=== PATIENT | female | born 1980 | race Caucasian/White ===

== ENCOUNTER 2023-01-05 13:07 | Outpatient (CLI) | payer OTHER, SELFPAY ==
--- NOTE | 2023-01-05 13:20 | CRLHL7_ITS ---
For Patients: As a result of the Century Cures Act, medical imaging exams and procedure reports are released immediately into your electronic medical record. You may view this report before your referring provider. If you have questions, please contact your health care provider. BILATERAL SCREENING MAMMOGRAM WITH COMPUTER-AIDED DETECTION AND TOMOSYNTHESIS TECHNIQUE: CC and MLO views were obtained. These mammographic images have been obtained using full-field digital technique. These mammographic images were interpreted with the benefit of computer-aided detection. Breast Tomosynthesis was used in this interpretation. COMPARISON FILM: 01/04/22, 10/25/20. FINDINGS: The breasts are heterogeneously dense, which may obscure small masses IMPRESSION: There is no radiographic evidence for malignancy. ASSESSMENT: BI-RADS Category 1: Negative RECOMMENDATION: Routine screening mammogram in 1 year. A lay language report of this examination will be provided to the patient. Pedro Pablo Robert M.D. Diagnostic/Nuclear Medicine Radiologist [email or web address] HERON/Dictated by: Pedro Pablo Robert MD @ 01/08/2023 8:05:00 AM (Electronically Signed)
== END 2023-01-05 13:08 | disposition home or self-care (01) ==
PROVIDERS: PCP Family Medicine; Visit Provider Obstetrics & Gynecology
DX: Z12.31 Encounter for screening mammogram for malignant neoplasm of breast (principal); R92.2 Inconclusive mammogram
CPT/HCPCS: 77063; 77067

== ENCOUNTER 2023-03-02 09:59 | Outpatient (CLI) | payer OTHER, SELFPAY ==
[2023-03-02 13:54] LABS: Chlamydia DNA Amplified* NOT DETECTED (No Detected); GC DNA Amplified* NOT DETECTED (No Detected)
== END 2023-03-02 10:00 | disposition home or self-care (01) ==
PROVIDERS: PCP Family Medicine; Visit Provider Obstetrics & Gynecology
DX: Z11.3 Encounter for screening for infections with a predominantly sexual mode of transmission (principal)
CPT/HCPCS: 86592; 86703; 86803; 87340; 87491; 87591

== ENCOUNTER 2023-03-08 09:28 | Outpatient (CLI) | payer OTHER, SELFPAY ==
--- NOTE | 2023-03-08 08:37 | W.ANESCHARGE ---
Anesthesia Charges Start Date/Time Anesthesia Start Date: 03/08/23 Stop Date/Time Anesthesia Stop Date: 03/08/23
--- NOTE | 2023-03-08 10:59 | W.ANESCHARGE ---
Anesthesia Charges Start Date/Time Anesthesia Start Date: 03/08/23 Anesthesia Start Time: 10:20 Stop Date/Time Anesthesia Stop Date: 03/08/23 Anesthesia Stop Time: 10:56
== END 2023-03-08 09:29 | disposition home or self-care (01) ==
LOC: OP CLINIC 09:28
PROVIDERS: PCP Family Medicine; Visit Provider Surgery
DX: Z12.11 Encounter for screening for malignant neoplasm of colon (principal); Z83.71 Family history of colonic polyps
CPT/HCPCS: 45378; 812; J2704

== ENCOUNTER 2023-06-18 10:47 | Inpatient (IN) | payer OTHER, SELFPAY ==
[2023-06-18] VITALS (10 sets, daily range): BP systolic 84–96; BP diastolic 51–58; PULSE 78–113; RESP 14–18; TEMP 36.5–40.5; O2SAT 98–100; BMI 21.8; BMI 22.5
[2023-06-18 12:07] LABS: PCR FLU A Negative PCR FLU A (Negative); PCR FLU B Negative PCR FLU B (Negative); PCR RSV Negative PCR RSV (Negative)
--- NOTE | 2023-06-18 12:11 | CRLHL7_ITS ---
For Patients: As a result of the Century Cures Act, medical imaging exams and procedure reports are released immediately into your electronic medical record. You may view this report before your referring provider. If you have questions, please contact your health care provider. INDICATION: Abdominal pain COMPARISON: None. TECHNIQUE: CT of the abdomen and pelvis after the administration of intravenous contrast. Multiplanar axial, coronal, and sagittal reformats were reconstructed. Contrast: 66 mL Isovue 370 intravenously. Oral contrast was not administered. FINDINGS: Lung bases: Normal. Liver: Normal. No masses. Normal vasculature. Gallbladder and biliary tree: Normal gallbladder. No biliary duct dilation. Pancreas: Normal. Spleen: Normal. Normal size. Adrenal glands: Normal. No nodules. Kidneys and bladder: Normal size and position. Few areas of poor enhancement blurred corticomedullary differentiation in both kidneys. No cyst or mass. No calculi. No urinary tract dilation. The urinary bladder is normal. GI: Normal. No dilated segments. No abnormal bowel wall thickening or hyperenhancement. Small stool burden. The appendix is not discretely seen. Vessels: Aorta and major branches, including the mesenteric vessels: Patent. Normal caliber. No atherosclerotic plaques. IVC and tributaries: Normal. Mesenteric and portal veins: Normal. Peritoneum: No free fluid. Lymph nodes: No adenopathy. Pelvis: Physiologic appearance of the reproductive organs. Bones: No fractures. No focal bone lesions. L5-S1 disc degeneration with loss of disc space height and mild retrolisthesis of L5 on S1.. Abdominal wall: Normal. IMPRESSION: Bilateral multifocal pyelonephritis. No renal abscess or perinephric collection. No urinary tract obstruction. Please note that all CT scans at this facility use dose modulation, iterative reconstruction, and/or weight-based dosing when appropriate to reduce radiation dose to as low as reasonably achievable. Dictated by Sarah Price MD @ 06/18/2023 1:52:01 PM (Electronically Signed)
--- NOTE | 2023-06-18 12:13 | ED.GENADULT ---
HPI - General Adult General Chief complaint: Fever Stated complaint: fever,vomitting Time Seen by Provider: 06/18/23 11:47 History of Present Illness HPI narrative: This 42-year-old female comes in reporting abdominal pain and fever over the past 3 days. She did measure a temperature of a 103.5? F. She states that she did not have a fever yesterday. She has had decreased appetite but has been able to take liquids. She states that her blood pressures typically a systolic value in the 90s but does feel some lightheadedness with her current blood pressure reading at 84/54. She arrives here with normal oximetry and denies having any shortness of breath. Her pulse is in normal range. Related Data Previous Rx's ?Medication ?Instructions ?Recorded desogestrel 0.15 mg-ethinyl 1 tab PO QDAY #112 tabs 06/12/23 estradiol 0.03 mg tablet (Apri) levothyroxine 75 mcg tablet 75 mcg PO DAILY #90 tabs 12/18/23 liothyronine 5 mcg tablet 2.5 mcg (1/2 x 5 mcg) PO DAILY #45 12/18/23 tabs sertraline 50 mg tablet 50 mg PO DAILY #90 tabs 12/18/23 sumatriptan succinate 25 mg tablet 25 - 50 mg (1 - 2 x 25 mg) PO ONCE 12/18/23 #9 tabs valacyclovir 1 gram tablet 2,000 mg (2 x 1 gram) PO BID PRN 12/18/23 cold sores #12 tabs Allergies Allergy/AdvReac Type Severity Reaction Status Date / Time No Known Drug Allergies Allergy Verified 12/18/23 12:53 Review of Systems Status of ROS: Reports: 10 or more systems reviewed and unremarkable except as noted in History and below Narrative: Constitutional: No weight gain or loss. She has had fevers as described above. Eyes: No discharge. No vision changes. HENT: No congestion, no sore throat, no ear pain. Cardiovascular: No chest pain, no palpitations. Respiratory: No shortness of breath, no wheezes, no cough. Gastrointestinal: No diarrhea. Abdominal pain with an episode of vomiting this morning. Genitourinary: No dysuria, no hematuria. Musculoskeletal: Normal range of motion. Skin: No rashes, no pruritis. Neurological: No dizziness, weakness, sensory change, speech change. Endo/Heme/Allergies: No bruising or bleeding. No polydipsia. Pysch: no suicidality, no anxiety, no insomnia. All other systems reviewed and are negative. [facility] Medical History Family history of colon cancer in mother ?Z80.0 - Family history of malignant neoplasm of digestive organs (ICD-10) Fracture of ankle ?S82.899A - Other fracture of unspecified lower leg, initial encounter for closed fracture (ICD-10) HSV-1 infection ?B00.9 - Herpesviral infection, unspecified (ICD-10) History of abnormal cervical Papanicolaou smear ?Z87.42 - Personal history of other diseases of the female genital tract (ICD-10) Vitiligo ?L80 - Vitiligo (ICD-10) Migraine ?G43.909 - Migraine, unspecified, not intractable, without status migrainosus (ICD-10) Hypothyroidism ?E03.9 - Hypothyroidism, unspecified (ICD-10) Jaspreet's thyroiditis ?E06.3 - Autoimmune thyroiditis (ICD-10) Anxiety ?F41.9 - Anxiety disorder, unspecified (ICD-10) Surgical History History of colposcopy with cervical biopsy ?Z98.890 - Other specified postprocedural states (ICD-10) History of wisdom tooth extraction (2007) ?K08.409 - Partial loss of teeth, unspecified cause, unspecified class (ICD-10) History of open reduction and internal fixation (ORIF) procedure (1998) ?Z98.890 - Other specified postprocedural states (ICD-10) Family History Father High blood pressure Depression Mother Coronary artery disease High cholesterol Maternal Grandmother Breast cancer Osteoporosis Maternal Grandfather Colon cancer Maternal Grandmother Stroke High blood pressure High cholesterol Paternal Grandfather Prostate cancer Social History (Updated 08/17/23 @ 12:01 by Shannen Ortega PA-C) Narrative: Currently elected to the [employer] [place] [employer] [place]. Going through a divorce. Two children. Lifelong nonsmoker. Drinks about 3 alcoholic drink per week. What is your current living situation?: I presently have a place to live Problems where you live: no known problems Problems where you live details: na In the past 12 months, utilities in danger of being shut off: no In past 12 months, lack of transportation kept you from medical appts, meetings, work, or getting things needed for daily living: no In the past 12 mos, have been you worried that your food would run out before you had money to buy more?: never true In the past 12 mos, the food you bought just didn't last and you didn't have money to buy more?: never true Highest level of school completed/degree received: Bachelor's degree Smoking Status: Never smoker How often do you have a drink containing alcohol: never AUDIT-C Alcohol total score: 0 Non-prescribed substance use: denies use Caffeine: No Are you now , , , , never or living with a partner: Social isolation score (0-1 are the most socially isolated patients): 0 How often does anyone, including family, friends and others, physically hurt you: never How often does anyone, including family, friends and others, insult or talk down to you: never How often does anyone, including family, friends and others, threaten you with harm: never How often does anyone, including family, friends and others, scream or curse at you: never Little interest or pleasure in doing things: more than half the days Feeling down, depressed, or hopeless: not at all Do you think of yourself as: straight/heterosexual Gender Identity: female Are you currently sexually active: Yes In the past 12 months, how many sex partners have you had: more than one What kind of protection do you use against STDs: condoms Are you using contraception or practicing any form of control: No service: No Exam Narrative: Exam Narrative: Constitutional: Well-developed, well-nourished, no acute distress. HEENT: Normocephalic, atraumatic. Neck: Normal range of motion. Nontender. Supple. Heart: Regular. No murmurs. Normal rate. Intact distal pulses. Lungs: Clear to auscultation. No chest discomfort. No wheezes, rhonchi, or rales. Abdomen: Normal bowel sounds. Tenderness in the right upper quadrant. Mild rebound tenderness. Genitalia: Deferred. Back: No midline tenderness. Normal range of motion. Extremities: Normal range of motion. No injury. Skin: Intact. No rash. Warm. No erythema or pallor. Neurologic: No altered sensation. No weakness. Alert and oriented. Psychiatric: No suicidality. No anxiety or depression. No insomnia. Nursing notes and vitals signs are reviewed. Const: Vital Signs, click to edit/add: Vital Signs - 24 hr 06/18/23 11:16 06/18/23 13:00 06/18/23 15:00 Temperature 97.7 F 98.9 F 104.7 F H Pulse Rate [Pulse Oximeter] 84 113 H Respiratory Rate 14 16 Blood Pressure [Ri ght Upper Arm] 84/54 L 89/51 L Pulse Oximetry 100 99 Oxygen Delivery Me thod Room Air 06/18/23 15:12 Temperature 104.9 F H Pulse Rate [Pulse Oximeter] Respiratory Rate Blood Pressure [Ri ght Upper Arm] Pulse Oximetry Oxygen Delivery Me thod Course Vital Signs Vital signs: Initial Vital Signs Temperature 97.7 F 06/18/23 11:16 Temperature Source Temporal Artery Scan 06/18/23 11:16 Pulse Rate 84 06/18/23 11:16 Pulse Rhythm Regular 06/18/23 11:16 Respiratory Rate 14 06/18/23 11:16 Blood Pressure 84/54 L 06/18/23 11:16 Blood Pressure Mean 64 L 06/18/23 11:16 Blood Pressure Position Sitting 06/18/23 11:16 Pulse Oximetry 100 06/18/23 11:16 Oxygen Delivery Method Room Air 06/18/23 11:16 Vital Signs Temperature 97.7 F 06/18/23 11:16 Pulse Rate 84 06/18/23 11:16 Respiratory Rate 14 06/18/23 11:16 Blood Pressure 84/54 L 06/18/23 11:16 Pulse Oximetry 100 06/18/23 11:16 Oxygen Delivery Method Room Air 06/18/23 11:16 Temperature 97.5 F L 06/22/23 11:00 Pulse Rate 65 06/22/23 11:00 Respiratory Rate 16 06/22/23 11:00 Blood Pressure 117/75 06/22/23 11:00 Pulse Oximetry 100 06/22/23 11:00 Oxygen Delivery Method Room Air 06/22/23 11:00 Medications Administered Medications: Discontinued Medications Generic Name Dose Route Start Last Admin Trade Name Freq PRN Reason Stop Dose Admin Acetaminophen 1,000 mg 06/18/23 15:08 06/18/23 15:12 Acetaminophen 500 Mg Tablet PO 06/18/23 15:09 1,000 mg ONCE ONE Administration Acetaminophen 650 - 975 mg 06/18/23 17:20 06/19/23 01:38 Acetaminophen 325 Mg Tablet PO 650 mg Q6H PRN Administration fever or pain Acetaminophen 1,000 mg 06/19/23 11:47 06/20/23 06:02 Acetaminophen 500 Mg Tablet PO 1,000 mg Q6H PRN Administration fever or pain Amoxicillin/Clavulanate Potassium 875 mg 06/20/23 13:00 06/21/23 09:24 Amoxicillin/Clavulanate 875 Mg/125 Mg Tablet PO 875 mg BIDWM GREG Administration Calcium Carbonate 500 mg 06/20/23 09:37 06/20/23 09:51 Calcium Carbonate 500 Mg Chew PO 500 mg Q4H PRN Administration gerd symptoms Calcium Carbonate 500 mg 06/20/23 09:44 06/22/23 09:24 Calcium Carbonate 500 Mg Chew PO 500 mg TID GREG Administration Enoxaparin Sodium 40 mg 06/18/23 21:00 06/21/23 20:53 Enoxaparin 40 Mg/0.4 Ml Inj SUBCUT 40 mg HS GREG Administration Furosemide 40 mg 06/21/23 15:36 06/21/23 16:54 Furosemide 10 Mg/Ml Inj IVP 06/21/23 15:37 40 mg ONCE ONE Administration Sodium Chloride 1,000 mls @ 1,000 mls/hr 06/18/23 12:15 06/18/23 13:31 0.9 % Sodium Chloride 1000 Ml IV 06/18/23 13:14 Infused .Q1H GREG Infusion Ceftriaxone Sodium 1 gm/ 100 mls @ 200 mls/hr 06/18/23 14:21 06/18/23 15:15 Sodium Chloride IVPB 06/18/23 14:22 Infused ONCE ONE Infusion Sodium Chloride 1,000 mls @ 1,000 mls/hr 06/18/23 15:00 06/18/23 16:03 0.9 % Sodium Chloride 1000 Ml IV 06/18/23 15:59 Infused .Q1H GREG Infusion Lactated Ringer's 1,000 mls @ 1,000 mls/hr 06/18/23 17:17 06/18/23 19:30 Lactated Ringers 1000 Ml IV 06/18/23 18:16 Infused .Q1H ONE Infusion Ceftriaxone Sodium 1 gm/ 100 mls @ 200 mls/hr 06/18/23 17:29 06/18/23 19:30 Sodium Chloride IVPB 06/18/23 17:30 Infused ONCE ONE Infusion Ceftriaxone Sodium 2 gm/ 100 mls @ 200 mls/hr 06/19/23 13:00 06/20/23 13:13 Sodium Chloride IVPB Not Given Q24H GREG Sodium Chloride 1,000 mls @ 1,000 mls/hr 06/19/23 02:00 06/19/23 04:10 0.9 % Sodium Chloride 1000 Ml IV 06/19/23 03:59 Infused .Q1H GREG Infusion Sodium Chloride 1,000 mls @ 200 mls/hr 06/19/23 04:22 06/20/23 06:01 0.9 % Sodium Chloride 1000 Ml IV Infused .Q5H GREG Infusion Ceftriaxone Sodium 2 gm/ 100 mls @ 200 mls/hr 06/21/23 14:15 06/21/23 15:30 Sodium Chloride IVPB Infused Q24H GREG Infusion Ceftriaxone Sodium 2 gm/ 100 mls @ 200 mls/hr 06/22/23 13:15 06/22/23 14:05 Sodium Chloride IVPB 200 mls/hr Q24H GREG Administration Ibuprofen 600 mg 06/18/23 17:25 06/20/23 19:49 Ibuprofen 400 Mg Tablet PO 600 mg Q6H PRN Administration fever or pain Ketorolac Tromethamine 15 mg 06/18/23 12:48 06/18/23 12:58 Ketorolac 30 Mg/Ml Inj IVP 06/18/23 12:49 Not Given ONCE ONE Ketorolac Tromethamine 15 mg 06/18/23 13:00 06/18/23 12:52 Ketorolac 15 Mg/Ml Inj IVP 06/18/23 13:01 15 mg ONCE ONE Administration Lactobacillus Acidophilus 1 tab 06/20/23 18:00 06/20/23 13:28 Lactobacillus Acidophilus 1 Tablet PO 1 tab TIDWM GREG Administration Lactobacillus Acidophilus 1 tab 06/20/23 13:00 06/22/23 14:04 Lactobacillus Acidophilus 1 Tablet PO Not Given TIDWM GREG Levothyroxine Sodium 75 mcg 06/19/23 09:00 06/22/23 09:24 Levothyroxine 75 Mcg Tablet PO 75 mcg DAILY GREG Administration Desogestrel-Ethinyl 0 tab 06/19/23 09:00 06/19/23 09:26 Estradiol [Apri] 0. PO 1 tab 15-0.03 Mg Tablet DAILY GREG Administration Liothyronine 5 Mcg 0 mcg 06/19/23 09:00 06/22/23 09:25 Tablet PO 2.5 mcg DAILY GREG Administration Desogestrel-Ethinyl 0 tab 06/20/23 12:00 06/22/23 12:30 Estradiol [Apri] 0. PO 1 tab 15-0.03 Mg Tablet DAILY@1200 GREG Administration Ondansetron HCl 4 mg 06/18/23 14:23 06/18/23 14:41 Ondansetron 2 Mg/Ml Inj IVP 06/18/23 14:24 4 mg ONCE ONE Administration Polyethylene Glycol 17 gm 06/18/23 17:20 06/20/23 09:51 Polyethylene Glycol 3350 17 Gm Pack PO 17 gm DAILY PRN Administration Potassium Bicarbonate 25 meq 06/18/23 17:30 06/18/23 19:28 Potassium Bicarb 25 Meq Effervescent Tab PO 06/18/23 19:31 25 meq Q2H GREG Administration Potassium Bicarbonate 25 meq 06/21/23 15:45 06/21/23 20:54 Potassium Bicarb 25 Meq Effervescent Tab PO 06/21/23 21:31 25 meq Q2H GREG Administration Senna/Docusate Sodium 1 tab 06/18/23 17:20 06/19/23 21:05 Sennosides/Docusate Tablet PO 1 tab DAILY PRN Administration Sertraline HCl 50 mg 06/19/23 09:00 06/19/23 09:27 Sertraline 50 Mg Tablet PO 50 mg DAILY GREG Administration Sertraline HCl 50 mg 06/20/23 12:00 06/22/23 12:29 Sertraline 50 Mg Tablet PO 50 mg DAILY@1200 GREG Administration Sodium Chloride 5 ml 06/18/23 21:00 06/20/23 21:34 Sodium Chloride 0.9 % (Flush) 10 Ml Syringe IVF Not Given BID GREG Medical Decision Making MDM Narrative Medical decision making narrative: This 42-year-old female comes in reporting abdominal pain and a report of fever in the past few days. She arrives with normal vital signs but her blood pressure is on the low side which she states is not atypical for her. She however does report some lightheadedness symptoms. She was chilled when I arrived initially and throughout the course of her stay here she is developing a fever despite getting Toradol 15 mg intravenously. She did generate a fever of around 104? F during her stay here. Blood cultures are acquired and her lactate returns at 2.4. The patient did received 2 L of normal saline intravenously which is a bit more than 30 milliliters/kilogram for her. After blood cultures she received a g of Rocephin. I did use bedside ultrasound to look at her right upper quadrant and saw normal gallbladder common bile duct. CT imaging of the abdomen and pelvis shows evidence of bilateral pyelonephritis. I did speak with the hospitalist automobile brakes bonder, Dr. Mi, regarding this patient who agrees to admit her into the hospital for ongoing management. Lab Data Labs: Lab Results 06/18/23 06/18/23 06/18/23 Range/Units 11:25 12:25 14:15 WBC 19.21 H (4.50-11.00) K/uL RBC 3.97 L (4.00-5.20) m/uL Hgb 11.3 L (12.0-16.0) gm/dL Hct 34.4 (33.0-51.0) % MCV 87 (80-100) fL MCH 29 (26-34) pg MCHC 33 (32-36) gm/dL RDW Coeff of [place] 13.9 (11.5-15.5) % Plt Count 298 (140-440) K/uL Neut % (Auto) 87.3 H (42.0-72.0) % Lymph % (Auto) 5.3 L (20-44) % [place] % (Auto) 7.0 (0.0-11.0) % Eos % (Auto) 0.0 (0.0-7.0) % Baso % (Auto) 0.1 (0.0-3.0) % Neut # (Auto) 16.80 H (1.7-7.0) K/uL Lymph # (Auto) 1.00 (0.90-2.90) K/uL [place] # (Auto) 1.30 H (0.00-0.90) K/UL Eos # (Auto) 0.00 (0.00-0.50) K/uL Baso # (Auto) 0.00 (0.00-0.30) K/uL Abs Immat Gran (auto) 0.10 (0.00-0.30) K/uL Imm/Tot Granulo (auto) 0.3 % Sodium 134 L (135-149) mmol/L Potassium 3.5 L (3.6-5.1) mmol/L Chloride 98 (96-114) mmol/L Carbon Dioxide 23 (20-32) mmol/L Anion Gap 13 (7-15) mEq/L BUN 10 (5-24) mg/dL Creatinine 0.8 (0.5-1.5) mg/dL Estimated Creat Clear 85.76 Estimated GFR 94 ml/min Glucose 100 (60-115) mg/dL Lactate 2.6 H (0.5-1.9) mmol/L Calcium 8.7 (8.4-10.6) mg/dL Total Bilirubin 0.6 (0.1-1.5) mg/dL Direct Bilirubin 0.1 (0.0-0.5) mg/dL AST 25 (12-35) U/L ALT 28 (4-35) U/L Alkaline Phosphatase 100 (40-150) U/L C-Reactive Protein 21.3 H (0.5-1.0) mg/dL Total Protein 7.4 (6.0-8.3) g/dL Albumin 4.0 (3.3-5.0) g/dL Urine Color (Yellow) Urine Appearance (Clear) Urine pH (5.0-8.5) Ur Specific [place] (1.000-1.030) Urine Protein (Negative) Urine Glucose (UA) (Negative) Urine Ketones (Negative) Urine Blood (Negative) Urine Nitrite (Negative) Urine Bilirubin (Negative) Urine Urobilinogen (0.2-1.0) Ur Leukocyte Esterase (Negative) Urine RBC (0-2) Urine WBC (0-5) Ur Squamous Epith Cells (None-Few) Amorphous Sediment (None) Urine Bacteria (None) SARS-CoV-2 (PCR) Negative SARS-CoV-2 (Negative) Influenza Type A (PCR) Negative PCR FLU A (Negative) Influenza Type B (PCR) Negative PCR FLU B (Negative) RSV (PCR) Negative PCR RSV (Negative) 06/18/23 Range/Units 14:33 WBC (4.50-11.00) K/uL RBC (4.00-5.20) m/uL Hgb (12.0-16.0) gm/dL Hct (33.0-51.0) % MCV (80-100) fL MCH (26-34) pg MCHC (32-36) gm/dL RDW Coeff of [place] (11.5-15.5) % Plt Count (140-440) K/uL Neut % (Auto) (42.0-72.0) % Lymph % (Auto) (20-44) % [place] % (Auto) (0.0-11.0) % Eos % (Auto) (0.0-7.0) % Baso % (Auto) (0.0-3.0) % Neut # (Auto) (1.7-7.0) K/uL Lymph # (Auto) (0.90-2.90) K/uL [place] # (Auto) (0.00-0.90) K/UL Eos # (Auto) (0.00-0.50) K/uL Baso # (Auto) (0.00-0.30) K/uL Abs Immat Gran (auto) (0.00-0.30) K/uL Imm/Tot Granulo (auto) % Sodium (135-149) mmol/L Potassium (3.6-5.1) mmol/L Chloride (96-114) mmol/L Carbon Dioxide (20-32) mmol/L Anion Gap (7-15) mEq/L BUN (5-24) mg/dL Creatinine (0.5-1.5) mg/dL Estimated Creat Clear Estimated GFR ml/min Glucose (60-115) mg/dL Lactate (0.5-1.9) mmol/L Calcium (8.4-10.6) mg/dL Total Bilirubin (0.1-1.5) mg/dL Direct Bilirubin (0.0-0.5) mg/dL AST (12-35) U/L ALT (4-35) U/L Alkaline Phosphatase (40-150) U/L C-Reactive Protein (0.5-1.0) mg/dL Total Protein (6.0-8.3) g/dL Albumin (3.3-5.0) g/dL Urine Color Yellow (Yellow) Urine Appearance Cloudy A (Clear) Urine pH 7.0 (5.0-8.5) Ur Specific [place] 1.010 (1.000-1.030) Urine Protein 2+ A (Negative) Urine Glucose (UA) Negative (Negative) Urine Ketones Trace A (Negative) Urine Blood 2+ A (Negative) Urine Nitrite Positive A (Negative) Urine Bilirubin Negative (Negative) Urine Urobilinogen 2.0 A (0.2-1.0) Ur Leukocyte Esterase 1+ A (Negative) Urine RBC 10-25 A (0-2) Urine WBC 25-50 A (0-5) Ur Squamous Epith Cells Few (None-Few) Amorphous Sediment Few A (None) Urine Bacteria Many A (None) SARS-CoV-2 (PCR) (Negative) Influenza Type A (PCR) (Negative) Influenza Type B (PCR) (Negative) RSV (PCR) (Negative) Imaging Data CT scan - abdomen: Radiologist's impression: Bilateral multifocal pyelonephritis. No renal abscess or perinephric collection. No urinary tract obstruction. Discharge Plan Discharge Clinical Impression: Pyelonephritis, Sepsis Patient Disposition: Admitted As Inpatient Condition: Unchanged Activity Level: Activity as Tolerated Discharge Diet: Regular Procedures Ultrasound Biliary exam #1: Anatomical areas examined: gallbladder, long and short axis and common bile duct Indications: RUQ/epigastric pain Exam type: limited abdominal ultrasound; RUQ Impression: normal exam Description/Findings: No findings of cholelithiasis or cholecystitis.
[2023-06-18 12:16] LABS: SARS PCR* Negative SARS-CoV-2 (Negative)
[2023-06-18] MEDS: 0.9 % SODIUM CHLORIDE 1000 ml 1,000 ML IV ×2 (12:31→15:00)
[2023-06-18 12:34] LABS: Basophils Percent Auto 0.1 % (0.0-3.0); Hematocrit 34.4 % (33.0-51.0); Hemoglobin* 11.3 gm/dL (12.0-16.0); Immature Granulocytes Pct Auto 0.3 %; Lymphocytes Percent Auto 5.3 % (20-44); Mean Corpuscular HGB Conc 33 gm/dL (32-36); Mean Corpuscular Hemoglobin 29 pg (26-34); Mean Corpuscular Volume 87 fL (80-100); Neutrophils Percent Auto 87.3 % (42.0-72.0); Platelet Count* 298 K/uL (140-440); RDW Coefficient of Variation % 13.9 % (11.5-15.5); Red Blood Count 3.97 m/uL (4.00-5.20); White Blood Count* 19.21 K/uL (4.50-11.00)
[2023-06-18 12:38] LABS: Slide Review Reflex No
[2023-06-18 12:51] LABS: Chloride* 98 mmol/L (96-114); Potassium* 3.5 mmol/L (3.6-5.1); Sodium* 134 mmol/L (135-149)
[2023-06-18] MEDS: KETOROLAC 15 MG/ML inj IVP (12:52)
[2023-06-18 12:53] LABS: Alanine Aminotransferase* 28 U/L (4-35); Alkaline Phosphatase* 100 U/L (40-150); Aspartate Amino Transferase* 25 U/L (12-35); Bilirubin Direct* 0.1 mg/dL (0.0-0.5); Bilirubin Total* 0.6 mg/dL (0.1-1.5); Total Protein* 7.4 g/dL (6.0-8.3)
[2023-06-18 12:54] LABS: Anion Gap 13 mEq/L (7-15); Blood Urea Nitrogen* 10 mg/dL (5-24); Calcium* 8.7 mg/dL (8.4-10.6); Carbon Dioxide* 23 mmol/L (20-32); Creatinine* 0.8 mg/dL (0.5-1.5); Est. Creatinine Clearance* 85.76; Estimated Glomerular Filt Rate 94 ml/min; Glucose* 100 mg/dL (60-115)
[2023-06-18] MEDS: ONDANSETRON 2 MG/ML inj 4 MG IVP (14:41)
[2023-06-18 14:46] LABS: Lactate* 2.6 mmol/L (0.5-1.9)
[2023-06-18] MEDS: cefTRIAXone 1 GM in 0.9 % SODIUM CHLORIDE Mini-bag 100 ML IVPB ×2 (14:46→17:43)
[2023-06-18 14:51] LABS: Appearance Urine Cloudy (Clear); Bilirubin Urine Negative (Negative); Blood Urine 2+ (Negative); Color Urine Yellow (Yellow); Glucose Urine Negative (Negative); Ketones Urine Trace (Negative); Leukocyte Esterase Urine 1+ (Negative); Nitrite Urine Positive (Negative); Protein Urine 2+ (Negative)
[2023-06-18] MEDS: ACETAMINOPHEN 500 MG TABLET 1000 MG PO (15:12)
[2023-06-18 15:14] LABS: Bacteria Urine Many; Squamous Epithelial Cell Urine Few (None-Few); WBC Urine 25-50 (0-5)
[2023-06-18 15:15] LABS: Amorphous Sediment Urine Few
--- NOTE | 2023-06-18 16:12 | ED.NURSE ---
Report given to MEGHA Arnold.
--- NOTE | 2023-06-18 17:17 | PM.IMHP1 ---
Hospitalist- H&P: HPI History of Present Illness Time Seen by Provider: 15:30 Date Seen: 06/18/23 Chief complaint: fever,vomitting Narrative: Brigette Delacruz is a 42 year old female with h/o Jaspreet's thyroiditis and hypothyroidism who presented through the ER for rigors, night sweats and fatigue. She was in her usual state of health on a recent packed 48 hour trip that ended Sunday. Sunday she felt lethargic. she went to [facility] with some friends and went in a sauna that evening. She felt really bad coming out of it and had fevers all the next day. She has been alternating acetaminophen with ibuprofen and will have feelings of being too cold for which she piles on the blankets but then gets too hot and has to take them all off. At night she wakes up with night sweats. She has had very little appetite and over the last 5 days she has had a piece of toast and an orange. He has been drinking lots of fluids, but still feels dry. She has been experiencing dizziness and vertigo that feels a lot like when she was 1st diagnosed with Jaspreet's thyroiditis. She has been able to take her medications every day. This morning she felt somewhat nauseous and had an emesis. She has been very fatigued and has not been able to walk her dog at all in the last 5 days. Review of Systems Status of ROS: Reports: 10 or more systems reviewed and unremarkable except as noted in History and below [facility] Medical History (Updated 06/18/23 @ 17:47 by Jeannie Rayo MD) Family history of colon cancer in mother ?Z80.0 - Family history of malignant neoplasm of digestive organs (ICD-10) Fracture of ankle ?S82.899A - Other fracture of unspecified lower leg, initial encounter for closed fracture (ICD-10) HSV-1 infection ?B00.9 - Herpesviral infection, unspecified (ICD-10) History of abnormal cervical Papanicolaou smear ?Z87.42 - Personal history of other diseases of the female genital tract (ICD-10) Vitiligo ?L80 - Vitiligo (ICD-10) Migraine ?G43.909 - Migraine, unspecified, not intractable, without status migrainosus (ICD-10) Hypothyroidism ?E03.9 - Hypothyroidism, unspecified (ICD-10) Jaspreet's thyroiditis ?E06.3 - Autoimmune thyroiditis (ICD-10) Anxiety ?F41.9 - Anxiety disorder, unspecified (ICD-10) Surgical History History of colposcopy with cervical biopsy ?Z98.890 - Other specified postprocedural states (ICD-10) History of wisdom tooth extraction (2007) ?K08.409 - Partial loss of teeth, unspecified cause, unspecified class (ICD-10) History of open reduction and internal fixation (ORIF) procedure (1998) ?Z98.890 - Other specified postprocedural states (ICD-10) Family History Father High blood pressure Depression Mother Coronary artery disease High cholesterol Maternal Grandmother Breast cancer Osteoporosis Maternal Grandfather Colon cancer Maternal Grandmother Stroke High blood pressure High cholesterol Paternal Grandfather Prostate cancer Social History (Updated 06/18/23 @ 17:41 by Jeannie Rayo MD) Narrative: Currently elected to the [facility] [employer]. Going through a divorce. Children are currently with her for the week. Lifelong nonsmoker. Drinks about 1 alcoholic drink per week. Uses THC gummies or chocolate occasionally, 2-3x per year, most recently one this past week. What is your current living situation?: I presently have a place to live Problems where you live: no known problems Problems where you live details: na In the past 12 months, utilities in danger of being shut off: no In past 12 months, lack of transportation kept you from medical appts, meetings, work, or getting things needed for daily living: no In the past 12 mos, have been you worried that your food would run out before you had money to buy more?: never true In the past 12 mos, the food you bought just didn't last and you didn't have money to buy more?: never true Highest level of school completed/degree received: Bachelor's degree Smoking Status: Never smoker How often do you have a drink containing alcohol: never AUDIT-C Alcohol total score: 0 Non-prescribed substance use: denies use Caffeine: No Are you now , , , , never or living with a partner: Social isolation score (0-1 are the most socially isolated patients): 0 How often does anyone, including family, friends and others, physically hurt you: never How often does anyone, including family, friends and others, insult or talk down to you: never How often does anyone, including family, friends and others, threaten you with harm: never How often does anyone, including family, friends and others, scream or curse at you: never Little interest or pleasure in doing things: not at all Feeling down, depressed, or hopeless: not at all Do you think of yourself as: straight/heterosexual Gender Identity: female Are you currently sexually active: Yes In the past 12 months, how many sex partners have you had: more than one What kind of protection do you use against STDs: condoms Are you using contraception or practicing any form of control: No service: No Meds Home Medications and Allergies Home Medication Comments: levothyroxine 75mcg daily liothyronine 2.5 mcg daily sertraline 50 mg daily Sumatriptan and valacyclovir prn Allergies Allergy/AdvReac Type Severity Reaction Status Date / Time No Known Drug Allergies Allergy Verified 06/18/23 13:28 Exam Narrative: Exam Narrative: General: No acute distress. Flushed. Awake alert oriented x3. HEENT: Normocephalic atraumatic, pupils equally round and reactive to light and accommodation. Oropharynx clear. Mucous membranes are moist. No cervical lymphadenopathy, thyromegaly or carotid bruits. No JVD. Cardiovascular: Regular rate and rhythm. No murmurs, gallops, or rubs. Chest: No increased work of breathing. Clear to auscultation bilaterally. No crackles or wheezes. Abdomen: Bowel sounds present. Soft, nondistended, mildly tender in the right upper quadrant. No rebound tenderness or guarding. No hepatosplenomegaly or masses. Extremities: No edema, no cyanosis or clubbing. Skin: No jaundice, no pallor, no rashes. Neuro: Grossly intact. No focal deficits. Const: Vital Signs, click to edit/add: Vital Signs - 24 hr 06/18/23 11:16 06/18/23 13:00 06/18/23 15:00 Temperature 97.7 F 98.9 F 104.7 F H Pulse Rate [Pulse Oximeter] 84 113 H Pulse Rate [Right Radial] Respiratory Rate 14 16 Blood Pressure [Le ft Arm] Blood Pressure [Ri ght Upper Arm] 84/54 L 89/51 L Pulse Oximetry 100 99 Oxygen Delivery Me thod Room Air 06/18/23 15:12 06/18/23 16:00 06/18/23 16:35 Temperature 104.9 F H 98.3 F 99.8 F H Pulse Rate [Pulse Oximeter] 95 Pulse Rate [Right Radial] 91 Respiratory Rate 16 18 Blood Pressure [Le ft Arm] 96/57 L Blood Pressure [Ri ght Upper Arm] 93/58 L Pulse Oximetry 98 98 Oxygen Delivery Me thod Room Air Room Air 06/18/23 16:49 Temperature Pulse Rate [Pulse Oximeter] Pulse Rate [Right Radial] Respiratory Rate 18 Blood Pressure [Le ft Arm] Blood Pressure [Ri ght Upper Arm] Pulse Oximetry 98 Oxygen Delivery Vt thod Room Air Hospitalist - H&P: Result Labs Labs: Short CBC 06/18/23 Range/Units 12:25 WBC 19.21 H (4.50-11.00) K/uL Hgb 11.3 L (12.0-16.0) gm/dL Hct 34.4 (33.0-51.0) % Plt Count 298 (140-440) K/uL BMP 06/18/23 12:25 Sodium 134 L Potassium 3.5 L Chloride 98 Carbon Dioxide 23 BUN 10 Creatinine 0.8 Glucose 100 Calcium 8.7 Liver Function 06/18/23 Range/Units 12:25 Total Bilirubin 0.6 (0.1-1.5) mg/dL Direct Bilirubin 0.1 (0.0-0.5) mg/dL AST 25 (12-35) U/L ALT 28 (4-35) U/L Alkaline Phosphatase 100 (40-150) U/L Albumin 4.0 (3.3-5.0) g/dL Urine 06/18/23 Range/Units 14:33 Urine Color Yellow (Yellow) Urine Appearance Cloudy A (Clear) Urine pH 7.0 (5.0-8.5) Ur Specific [place] 1.010 (1.000-1.030) Urine Protein 2+ A (Negative) Urine Glucose (UA) Negative (Negative) Ordering Physician: Saman Rubi M.D. Date of Service: 06/18/23 Procedure(s): CT abdomen pelvis w con Accession Number(s): [id number] cc: Antolin Bella M.D.; Saman Rubi M.D.~ For Patients: As a result of the Cures Act, medical imaging exams and procedure reports are released immediately into your electronic medical record. You may view this report before your referring provider. If you have questions, please contact your health care provider. INDICATION: Abdominal pain COMPARISON: None. TECHNIQUE: CT of the abdomen and pelvis after the administration of intravenous contrast. Multiplanar axial, coronal, and sagittal reformats were reconstructed. Contrast: 66 mL Isovue 370 intravenously. Oral contrast was not administered. FINDINGS: Lung bases: Normal. Liver: Normal. No masses. Normal vasculature. Gallbladder and biliary tree: Normal gallbladder. No biliary duct dilation. Pancreas: Normal. Spleen: Normal. Normal size. Adrenal glands: Normal. No nodules. Kidneys and bladder: Normal size and position. Few areas of poor enhancement blurred corticomedullary differentiation in both kidneys. No cyst or mass. No calculi. No urinary tract dilation. The urinary bladder is normal. GI: Normal. No dilated segments. No abnormal bowel wall thickening or hyperenhancement. Small stool burden. The appendix is not discretely seen. Vessels: Aorta and major branches, including the mesenteric vessels: Patent. Normal caliber. No atherosclerotic plaques. IVC and tributaries: Normal. Mesenteric and portal veins: Normal. Peritoneum: No free fluid. Lymph nodes: No adenopathy. Pelvis: Physiologic appearance of the reproductive organs. Bones: No fractures. No focal bone lesions. L5-S1 disc degeneration with loss of disc space height and mild retrolisthesis of L5 on S1.. Abdominal wall: Normal. IMPRESSION: Bilateral multifocal pyelonephritis. No renal abscess or perinephric collection. No urinary tract obstruction. Please note that all CT scans at this facility use dose modulation, iterative reconstruction, and/or weight-based dosing when appropriate to reduce radiation dose to as low as reasonably achievable. Dictated by Sarah Price MD @ 06/18/2023 1:52:01 PM (Electronically Signed) Assessment and Plan Assessment and plan (1) Sepsis: Problem comment: - Severe sepsis with WBC>12, HR >90, T>100.9, lactate>2. Source is pyelonephritis. Admit for IV antibiotics. She has gotten 2L IVF in the ER and since she is still mildly hypotensive, I will give her a 3rd L. UC, BCx2 and repeat lactate are pending. Status: Acute (2) Pyelonephritis: Problem comment: Was started on ceftriaxone in ER. Increase dose to 2g IV daily. Await UC. Status: Acute (3) Hypothyroidism: Problem comment: Continue levothyroxine Status: Chronic (4) Jaspreet's thyroiditis: Problem comment: Continue liothyronine Status: Chronic
[2023-06-18] MEDS: LACTATED RINGERS 1000 ML 1,000 ML IV (17:39)
[2023-06-18] MEDS: POTASSIUM BICARB 25 MEQ EFFERVESCENT TAB PO ×2 (17:43→19:28)
[2023-06-18 18:07] LABS: Lactate* 1.2 mmol/L (0.5-1.9)
--- NOTE | 2023-06-18 18:35 | PC.NURSE ---
admission. pt is very pleasant. she was sweaty in ed. temps was 99.8 on admission. HR-R and LSC. she feels warm. she is drinking and voiding. encourage protein intake., she is up with SBA. IV fluids and antibiotics are infusing.
[2023-06-18 19:29] LABS: C Reactive Protein* 21.3 mg/dL (0.5-1.0)
[2023-06-18] MEDS: ENOXAPARIN 40 MG/0.4 ML INJ SUBCUT (19:29)
[2023-06-18] MEDS: SODIUM CHLORIDE 0.9 % (FLUSH) 10 ML SYRINGE 5 ML IVF (19:29)
[2023-06-18] MEDS: IBUPROFEN 400 MG TABLET 600 MG PO (19:30)
[2023-06-19] VITALS (15 sets, daily range): BP systolic 77–103; BP diastolic 46–71; PULSE 66–90; RESP 16–18; TEMP 36.4–39.2; O2SAT 96–100
[2023-06-19] MEDS: ACETAMINOPHEN 325 MG TABLET PO (01:38)
[2023-06-19] MEDS: 0.9 % SODIUM CHLORIDE 1000 ml 1,000 ML IV ×2 (02:10→03:15)
[2023-06-19] MEDS: 0.9 % SODIUM CHLORIDE 1000 ml 1,000 ML 200 ML IV ×4 (04:20→20:00)
[2023-06-19 06:49] LABS: Basophils Percent Auto 0.2 % (0.0-3.0); Eosinophils Percent Auto 0.2 % (0.0-7.0); Hematocrit 27.8 % (33.0-51.0); Hemoglobin* 9.1 gm/dL (12.0-16.0); Immature Granulocytes Pct Auto 0.2 %; Lymphocytes Percent Auto 10.7 % (20-44); Mean Corpuscular HGB Conc 33 gm/dL (32-36); Mean Corpuscular Hemoglobin 29 pg (26-34); Mean Corpuscular Volume 87 fL (80-100); Monocytes Percent Auto 9.5 % (0.0-11.0); Neutrophils Percent Auto 79.2 % (42.0-72.0); Platelet Count* 251 K/uL (140-440); RDW Coefficient of Variation % 14.4 % (11.5-15.5); Red Blood Count 3.19 m/uL (4.00-5.20); White Blood Count* 13.09 K/uL (4.50-11.00)
[2023-06-19 06:55] LABS: Chloride* 107 mmol/L (96-114); Sodium* 137 mmol/L (135-149)
[2023-06-19 06:56] LABS: Potassium* 4.2 mmol/L (3.6-5.1)
[2023-06-19 06:58] LABS: Creatinine* 0.8 mg/dL (0.5-1.5); Est. Creatinine Clearance* 85.76; Estimated Glomerular Filt Rate 94 ml/min
[2023-06-19 06:59] LABS: Anion Gap 7 mEq/L (7-15); Blood Urea Nitrogen* 7 mg/dL (5-24); Calcium* 7.4 mg/dL (8.4-10.6); Carbon Dioxide* 23 mmol/L (20-32); Glucose* 102 mg/dL (60-115)
[2023-06-19 07:01] LABS: Slide Review Reflex No
[2023-06-19 07:16] LABS: C Reactive Protein* 21.4 mg/dL (0.5-1.0)
--- NOTE | 2023-06-19 07:29 | PC.NURSE ---
Pt alert and oriented x3. Afebrile. Pt reports 3/10 pain in abdomen, pain managed with PRN medications. Pt had soft bp's 77/47 around 0145, pt denied chest pain, SOB, light headedness/dizziness, and N/V, updated, ordered 2L Normal saline bolus and 200 normal saline maintenance fluids 200ml/hr after bolus finished. Pt blood pressure improved slowly, last bp was around 0600 99/64. Pt reports My baseline blood pressures are in the 90's. Pt slept poorly throughout night due to frequent interruptions for medications and vital signs and having to use bathroom. Pt understanding and pleasant about all the cares given. Pt voiding, tolerating regular diet but still reports low appetite.
[2023-06-19] MEDS: SERTRALINE 50 MG TABLET PO (09:27)
[2023-06-19] MEDS: LEVOTHYROXINE 75 MCG TABLET PO (09:27)
[2023-06-19] MEDS: IBUPROFEN 400 MG TABLET 600 MG PO ×2 (10:05→17:23)
--- NOTE | 2023-06-19 11:49 | P.IMPN_ITS ---
Progress Note: A&P Assessment and plan (1) Sepsis: Problem details: - Severe sepsis with WBC>12, HR >90, T>100.9, lactate>2. Source is pyelonephritis. Admit for IV antibiotics. She has gotten 2L IVF in the ER and since she is still mildly hypotensive, I will give her a 3rd L. - CT shows bilateral multifocal pyelonephritis. No renal abscess or perinephric collection. No urinary tract obstruction - 06/19: leukocytosis down trending, lactate 1.2. CRP unchanged. Remains intermittently febrile. - continue IV ceftriaxone 2 g Q 24 hours, NS IV maintenance fluids, bolus as needed - continue to monitor blood pressure, normal systolic for her is mid 90s-100 - BC x2, UC pending Status: Acute (2) Pyelonephritis: Problem details: - antibiotics and fluids as above - fever management prn - UC pending Status: Acute (3) Hypothyroidism: Problem details: - Continue levothyroxine. TSH ordered Status: Chronic (4) Jaspreet's thyroiditis: Problem details: - Continue liothyronine. TSH ordered Status: Chronic (5) Anemia: Problem details: - likely dilutional. No signs of acute bleeding. No current menses. Continue to monitor. Status: Acute Time Spent With Patient Total time spent: Total time spent caring for the patient today was 45 minutes. This includes time spent for the visit reviewing the chart, time spent during the visit, time spent after the visit and documentation and planning in coordination of care. Subjective Date Seen: 06/19/23 Interval history: Patient reports feeling 180? better than on admission however still quite fatigued and in general not feeling well. Has continued to have fevers low 90s- 102. Denies headache or dizziness currently. Denies chest pain or shortness of breath. Denies nausea, no further vomiting. Abdomen still feels bloated but improving. Tolerating orals. Exam Narrative: Exam Narrative: PHYSICAL EXAM General: Pleasant, conversant, appears fatigued otherwise NAD HEENT: Normocephalic, atraumatic, sclera white, EOMI, oral mucosa moist Cardiovascular: RRR, S1S2. No pitting edema Pulmonary: CTA bilaterally without rhonchi, rales, expiratory wheezes. No dyspnea Abdominal: Soft, mildly distended, NTTP, no guarding Neurological: Alert, answering questions appropriately, cranial nerves intact, no focal findings Extremities: No gross joint deformity or swelling. AROMI. Neurovascularly intact Skin: Warm, dry. Const: Vital Signs, click to edit/add: Vital Signs - 24 hr 06/18/23 13:00 06/18/23 15:00 06/18/23 15:12 Temperature 98.9 F 104.7 F H 104.9 F H Pulse Rate [Pulse Oximeter] 113 H Pulse Rate [Right Radial] Respiratory Rate 16 Blood Pressure [Le ft Arm] Blood Pressure [Ri ght Arm] Blood Pressure [Ri ght Upper Arm] 89/51 L Pulse Oximetry 99 Oxygen Delivery Me thod 06/18/23 16:00 06/18/23 16:35 06/18/23 16:49 Temperature 98.3 F 99.8 F H Pulse Rate [Pulse Oximeter] 95 Pulse Rate [Right Radial] 91 Respiratory Rate 16 18 18 Blood Pressure [Le ft Arm] 96/57 L Blood Pressure [Ri ght Arm] Blood Pressure [Ri ght Upper Arm] 93/58 L Pulse Oximetry 98 98 98 Oxygen Delivery Me thod Room Air Room Air Room Air 06/18/23 17:39 06/18/23 19:30 06/18/23 19:30 Temperature 99.8 F H 98.2 F 98.2 F Pulse Rate [Pulse Oximeter] Pulse Rate [Right Radial] 83 Respiratory Rate 16 Blood Pressure [Le ft Arm] 91/58 L Blood Pressure [Ri ght Arm] Blood Pressure [Ri ght Upper Arm] Pulse Oximetry 100 Oxygen Delivery Me thod Room Air 06/18/23 22:35 06/19/23 01:45 06/19/23 03:10 Temperature 98.1 F 98.1 F 98.1 F Pulse Rate [Pulse Oximeter] Pulse Rate [Right Radial] 78 80 81 Respiratory Rate 16 16 16 Blood Pressure [Le ft Arm] 93/55 L 77/47 L 89/55 L Blood Pressure [Ri ght Arm] 79/52 L Blood Pressure [Ri ght Upper Arm] Pulse Oximetry 98 100 100 Oxygen Delivery Me thod Room Air Room Air 06/19/23 04:10 06/19/23 06:00 06/19/23 09:30 Temperature 98.4 F 98.3 F Pulse Rate [Pulse Oximeter] Pulse Rate [Right Radial] 75 89 89 Respiratory Rate 16 16 16 Blood Pressure [Le ft Arm] 89/58 L 99/64 Blood Pressure [Ri ght Arm] Blood Pressure [Ri ght Upper Arm] Pulse Oximetry 99 100 Oxygen Delivery Me thod Room Air Room Air 06/19/23 09:30 06/19/23 10:05 06/19/23 11:00 Temperature 98.9 F 98.6 F 102.5 F H Pulse Rate [Pulse Oximeter] Pulse Rate [Right Radial] 88 90 Respiratory Rate 16 18 Blood Pressure [Le ft Arm] Blood Pressure [Ri ght Arm] 88/57 L 94/60 Blood Pressure [Ri ght Upper Arm] Pulse Oximetry 99 97 Oxygen Delivery Me thod Room Air Room Air Labs Labs: Laboratory Results - last 24 hr 06/18/23 06/18/23 06/18/23 11:25 12:25 14:15 WBC 19.21 H RBC 3.97 L Hgb 11.3 L Hct 34.4 MCV 87 MCH 29 MCHC 33 RDW Coeff of [place] 13.9 Plt Count 298 Neut % (Auto) 87.3 H Lymph % (Auto) 5.3 L [place] % (Auto) 7.0 Eos % (Auto) 0.0 Baso % (Auto) 0.1 Neut # (Auto) 16.80 H Lymph # (Auto) 1.00 [place] # (Auto) 1.30 H Eos # (Auto) 0.00 Baso # (Auto) 0.00 Abs Immat Gran (auto) 0.10 Imm/Tot Granulo (auto) 0.3 Sodium 134 L Potassium 3.5 L Chloride 98 Carbon Dioxide 23 Anion Gap 13 BUN 10 Creatinine 0.8 Estimated Creat Clear 85.76 Estimated GFR 94 Glucose 100 Lactate 2.6 H Calcium 8.7 Total Bilirubin 0.6 Direct Bilirubin 0.1 AST 25 ALT 28 Alkaline Phosphatase 100 C-Reactive Protein 21.3 H Total Protein 7.4 Albumin 4.0 Urine Color Urine Appearance Urine pH Ur Specific [place] Urine Protein Urine Glucose (UA) Urine Ketones Urine Blood Urine Nitrite Urine Bilirubin Urine Urobilinogen Ur Leukocyte Esterase Urine RBC Urine WBC Ur Squamous Epith Cells Amorphous Sediment Urine Bacteria SARS-CoV-2 (PCR) Negative SARS-CoV-2 Influenza Type A (PCR) Negative PCR FLU A Influenza Type B (PCR) Negative PCR FLU B RSV (PCR) Negative PCR RSV Lab Acknowledgement 06/18/23 06/18/2306/18/23 14:33 18:00 18:09 WBC RBC Hgb Hct MCV MCH MCHC RDW Coeff of [place] Plt Count Neut % (Auto) Lymph % (Auto) [place] % (Auto) Eos % (Auto) Baso % (Auto) Neut # (Auto) Lymph # (Auto) [place] # (Auto) Eos # (Auto) Baso # (Auto) Abs Immat Gran (auto) Imm/Tot Granulo (auto) Sodium Potassium Chloride Carbon Dioxide Anion Gap BUN Creatinine Estimated Creat Clear Estimated GFR Glucose Lactate 1.2 Calcium Total Bilirubin Direct Bilirubin AST ALT Alkaline Phosphatase C-Reactive Protein Total Protein Albumin Urine Color Yellow Urine Appearance Cloudy A Urine pH 7.0 Ur Specific [place] 1.010 Urine Protein 2+ A Urine Glucose (UA) Negative Urine Ketones Trace A Urine Blood 2+ A Urine Nitrite Positive A Urine Bilirubin Negative Urine Urobilinogen 2.0 A Ur Leukocyte Esterase 1+ A Urine RBC 10-25 A Urine WBC 25-50 A Ur Squamous Epith Cells Few Amorphous Sediment Few A Urine Bacteria Many A SARS-CoV-2 (PCR) Influenza Type A (PCR) Influenza Type B (PCR) RSV (PCR) Lab Acknowledgement Test Added 06/19/23 06:03 WBC 13.09 H RBC 3.19 L Hgb 9.1 L Hct 27.8 L MCV 87 MCH 29 MCHC 33 RDW Coeff of [place] 14.4 Plt Count 251 Neut % (Auto) 79.2 H Lymph % (Auto) 10.7 L [place] % (Auto) 9.5 Eos % (Auto) 0.2 Baso % (Auto) 0.2 Neut # (Auto) 10.40 H Lymph # (Auto) 1.40 [place] # (Auto) 1.20 H Eos # (Auto) 0.00 Baso # (Auto) 0.00 Abs Immat Gran (auto) 0.00 Imm/Tot Granulo (auto) 0.2 Sodium 137 Potassium 4.2 Chloride 107 Carbon Dioxide 23 Anion Gap 7 BUN 7 Creatinine 0.8 Estimated Creat Clear 85.76 Estimated GFR 94 Glucose 102 Lactate Calcium 7.4 L Total Bilirubin Direct Bilirubin AST ALT Alkaline Phosphatase C-Reactive Protein 21.4 H Total Protein Albumin Urine Color Urine Appearance Urine pH Ur Specific [place] Urine Protein Urine Glucose (UA) Urine Ketones Urine Blood Urine Nitrite Urine Bilirubin Urine Urobilinogen Ur Leukocyte Esterase Urine RBC Urine WBC Ur Squamous Epith Cells Amorphous Sediment Urine Bacteria SARS-CoV-2 (PCR) Influenza Type A (PCR) Influenza Type B (PCR) RSV (PCR) Lab Acknowledgement
[2023-06-19] MEDS: ACETAMINOPHEN 500 MG TABLET 1000 MG PO ×2 (13:12→20:58)
[2023-06-19] MEDS: cefTRIAXone 2 GM in 0.9 % SODIUM CHLORIDE Mini-bag 100 ML IVPB (13:12)
--- NOTE | 2023-06-19 19:46 | PC.NURSE ---
end of shift. . pt is very pleasant. mild abd pain. temps was 99.8 - 102.5 she got po tylenol and Ibuprofen. HR-R and LSC.. she is drinking , eating and voiding. she is up ab moo. . IV fluids and antibiotics are infusing. she had a shower.
[2023-06-19] MEDS: ENOXAPARIN 40 MG/0.4 ML INJ SUBCUT (20:57)
[2023-06-19] MEDS: SENNOSIDES/DOCUSATE TABLET 1 TAB PO (21:05)
--- NOTE | 2023-06-19 21:31 | PM.IMPN1 ---
Progress Note: A&P Assessment and plan (1) Abdominal distension: Problem details: Concern for ileus or SBO. Obtain flat and upright. Recommended patient ambulate frequently. Status: Acute (2) Pyelonephritis: Problem details: - antibiotics and fluids as above - fever management prn - UC pending Status: Acute Subjective Time Seen by Provider: 21:31 Date Seen: 06/19/23 Interval history: Nurse reports patient has swollen abdomen. Brigette denies abdominal pain. Has not had a BM for many days. She has not been outside the room to walk since she got here. She still feels dry in the mouth and has no swelling of her hands or feet. Exam Narrative: Exam Narrative: General: [No acute distress.] [Awake, alert, oriented x3.] [No pallor.] [No jaundice.] Oropharynx: Clear. Mucous membranes dry. Abdomen: Bowel sounds very hypoactive. Soft, distended, nontender. Const: Vital Signs, click to edit/add: Vital Signs - 24 hr 06/18/23 22:35 06/19/23 01:45 06/19/23 03:10 Temperature 98.1 F 98.1 F 98.1 F Pulse Rate [Right Radial] 78 80 81 Respiratory Rate 16 16 16 Blood Pressure [Le ft Arm] 93/55 L 77/47 L 89/55 L Blood Pressure [Ri ght Arm] 79/52 L Pulse Oximetry 98 100 100 Oxygen Delivery Me thod Room Air Room Air 06/19/23 04:10 06/19/23 06:00 06/19/23 09:30 Temperature 98.4 F 98.3 F Pulse Rate [Right Radial] 75 89 89 Respiratory Rate 16 16 16 Blood Pressure [Le ft Arm] 89/58 L 99/64 Blood Pressure [Ri ght Arm] Pulse Oximetry 99 100 Oxygen Delivery Me thod Room Air Room Air 06/19/23 09:30 06/19/23 10:05 06/19/23 11:00 Temperature 98.9 F 98.6 F 102.5 F H Pulse Rate [Right Radial] 88 90 Respiratory Rate 16 18 Blood Pressure [Le ft Arm] Blood Pressure [Ri ght Arm] 88/57 L 94/60 Pulse Oximetry 99 97 Oxygen Delivery Me thod Room Air Room Air 06/19/23 13:11 06/19/23 13:12 06/19/23 14:44 Temperature 99.8 F H 99.8 F H 98.5 F Pulse Rate [Right Radial] Respiratory Rate Blood Pressure [Le ft Arm] Blood Pressure [Ri ght Arm] Pulse Oximetry Oxygen Delivery Me thod 06/19/23 15:00 06/19/23 16:06 06/19/23 19:50 Temperature 99.8 F H 97.9 F Pulse Rate [Right Radial] 88 88 66 Respiratory Rate 18 18 16 Blood Pressure [Le ft Arm] Blood Pressure [Ri ght Arm] 88/46 L 90/57 L Pulse Oximetry 96 100 Oxygen Delivery Me thod Room Air Room Air 06/19/23 20:00 Temperature 97.9 F Pulse Rate [Right Radial] Respiratory Rate Blood Pressure [Le ft Arm] Blood Pressure [Ri ght Arm] Pulse Oximetry Oxygen Delivery Me thod Labs Labs: Laboratory Results - last 24 hr 06/19/23 06:03 WBC 13.09 H RBC 3.19 L Hgb 9.1 L Hct 27.8 L MCV 87 MCH 29 MCHC 33 RDW Coeff of [place] 14.4 Plt Count 251 Neut % (Auto) 79.2 H Lymph % (Auto) 10.[address] [place] % (Auto) 9.5 Eos % (Auto) 0.2 Baso % (Auto) 0.2 Neut # (Auto) 10.40 H Lymph # (Auto) 1.40 [place] # (Auto) 1.20 H Eos # (Auto) 0.00 Baso # (Auto) 0.00 Abs Immat Gran (auto) 0.00 Imm/Tot Granulo (auto) 0.2 Sodium 137 Potassium 4.2 Chloride 107 Carbon Dioxide 23 Anion Gap 7 BUN 7 Creatinine 0.8 Estimated Creat Clear 85.76 Estimated GFR 94 Glucose 102 Calcium 7.4 L C-Reactive Protein 21.4 H TSH 4.860 H Lab Acknowledgement Test Added
--- NOTE | 2023-06-19 21:40 | CRLHL7_ITS ---
For Patients: As a result of the Century Cures Act, medical imaging exams and procedure reports are released immediately into your electronic medical record. You may view this report before your referring provider. If you have questions, please contact your health care provider. INDICATION: Abdominal distention, hypoactive bowel sounds TECHNIQUE: Abdomen/Pelvis radiograph 3 views COMPARISON: 06/18/2023 FINDINGS: Bowel: The bowel gas pattern is normal without evidence of bowel obstruction. Soft tissue: No evidence of pneumoperitoneum present. No suspicious calcifications noted. Bone: Unremarkable for age. Miscellaneous: Mild bibasilar atelectasis and small bilateral pleural effusions are noted. IMPRESSIONS: 1. Unremarkable appearance of the visualized abdomen. 2. Mild bibasilar atelectasis and small bilateral pleural effusions are noted. Dictated by Josh Brown MD @ 06/19/2023 10:49:41 PM Dictated by: Josh Brown MD @ 06/19/2023 22:49:43 (Electronically Signed)
[2023-06-20] VITALS (7 sets, daily range): BP systolic 95–113; BP diastolic 65–77; PULSE 69–82; RESP 14–18; TEMP 36.5–37; O2SAT 95–100
[2023-06-20] MEDS: 0.9 % SODIUM CHLORIDE 1000 ml 1,000 ML 200 ML IV (00:58)
[2023-06-20] MEDS: IBUPROFEN 400 MG TABLET 600 MG PO ×2 (02:06→19:49)
--- NOTE | 2023-06-20 05:23 | PC.NURSE ---
Pt alert and oriented x3. Pt reports waking up sweaty, oral temp taken each time, afebrile. Pt reports 1/10 pain in abdomen that she stated Its more pressure than pain, I feel bloated.. Pt's reported not having bowel movement since last week I think it was Sunday or , senna was given. Pt's bowel sounds are hypoactive and pt's abdomen was noted to be visibly larger than the day before, Dr. Rayo updated, x-ray of abdomen ordered, and she spoke with the pt to walk x6 daily. Pt is up ad moo in room, voiding, tolerating a regular diet but still reports low appetite. Pt slept throughout most of night.
[2023-06-20] MEDS: ACETAMINOPHEN 500 MG TABLET 1000 MG PO (06:02)
[2023-06-20] MEDS: LEVOTHYROXINE 75 MCG TABLET PO (06:14)
[2023-06-20 06:37] LABS: Basophils Absolute Auto 0.01 K/uL (0.00-0.30); Basophils Percent Auto 0.1 % (0.0-3.0); Eosinophils Absolute Auto 0.09 K/uL (0.00-0.50); Eosinophils Percent Auto 0.9 % (0.0-7.0); Hematocrit 28.3 % (33.0-51.0); Hemoglobin* 9.1 gm/dL (12.0-16.0); Immature Granulocytes Abs Auto 0.02 K/uL (0.00-0.30); Immature Granulocytes Pct Auto 0.2 %; Lymphocytes Absolute Auto 2.02 K/uL (0.90-2.90); Lymphocytes Percent Auto 20.6 % (20-44); Mean Corpuscular HGB Conc 32 gm/dL (32-36); Mean Corpuscular Hemoglobin 29 pg (26-34); Mean Corpuscular Volume 89 fL (80-100); Monocytes Percent Auto 10.5 % (0.0-11.0); Neutrophils Absolute Auto 6.65 K/uL (1.7-7.0); Neutrophils Percent Auto 67.7 % (42.0-72.0); Platelet Count* 289 K/uL (140-440); RDW Coefficient of Variation % 15.1 % (11.5-15.5); Red Blood Count 3.19 m/uL (4.00-5.20); White Blood Count* 9.82 K/uL (4.50-11.00)
[2023-06-20 06:59] LABS: Chloride* 112 mmol/L (96-114); Potassium* 3.7 mmol/L (3.6-5.1); Sodium* 139 mmol/L (135-149)
[2023-06-20 07:01] LABS: Creatinine* 0.7 mg/dL (0.5-1.5); Est. Creatinine Clearance* 98.01; Estimated Glomerular Filt Rate 111 ml/min
[2023-06-20 07:02] LABS: Anion Gap 7 mEq/L (7-15); Blood Urea Nitrogen* 7 mg/dL (5-24); Calcium* 7.3 mg/dL (8.4-10.6); Carbon Dioxide* 20 mmol/L (20-32); Glucose* 96 mg/dL (60-115)
[2023-06-20 07:06] LABS: Slide Review Reflex No
[2023-06-20 07:20] LABS: C Reactive Protein* 16.5 mg/dL (0.5-1.0)
--- NOTE | 2023-06-20 09:39 | PM.IMPN1 ---
Progress Note: A&P Assessment and plan (1) Pyelonephritis: Problem details: - pansensitive E Coli on urine culture, continue Ceftriaxone (06/18) - fever management prn Status: Acute (2) Abdominal distension: Problem details: - reassuring imaging on 06/19, tolerating po intake - continue ambulation Status: Acute Plan - per above - Lovenox and SCDs for ppx - likely home tomorrow, pending clinical course Subjective Date Seen: 06/20/23 Interval history: Patt is still feeling ill this morning, but better than upon arrival. Tmax 102.5 yesterday morning. Last night noted more edema and + abdominal distention, no acute findings noted on imaging. No nausea or vomiting. Hasn't had a BM since admission. WBC improving, Calcium low. VS baseline this morning. Exam Narrative: Exam Narrative: GEN: Alert and oriented, nontoxic but does appear ill HEENT: EOMIs bilaterally, no scleral icterus CV: RRR, No concerning murmurs R: LCTA bilaterally without concerning wheezing, air movement adequate Ab: soft, tolerates palpation, + distention, bowel sounds present but hypoactive Ext: + nonpitting edema B hands and feet Skin: No concerning skin lesions or rashes on exposed skin Neuro: Nonfocal Psych: Appropriate Const: Vital Signs, click to edit/add: Vital Signs - 24 hr 06/19/23 10:05 06/19/23 11:00 06/19/23 13:11 Temperature 98.6 F 102.5 F H 99.8 F H Pulse Rate [Right Radial] 90 Respiratory Rate 18 Blood Pressure [Le ft Arm] Blood Pressure [Ri ght Arm] 94/60 Pulse Oximetry 97 Oxygen Delivery Me thod Room Air 06/19/23 13:12 06/19/23 14:44 06/19/23 15:00 Temperature 99.8 F H 98.5 F 99.8 F H Pulse Rate [Right Radial] 88 Respiratory Rate 18 Blood Pressure [Le ft Arm] Blood Pressure [Ri ght Arm] 88/46 L Pulse Oximetry 96 Oxygen Delivery Me thod Room Air 06/19/23 16:06 06/19/23 19:50 06/19/23 20:00 Temperature 97.9 F 97.9 F Pulse Rate [Right Radial] 88 66 Respiratory Rate 18 16 Blood Pressure [Le ft Arm] Blood Pressure [Ri ght Arm] 90/57 L Pulse Oximetry 100 Oxygen Delivery Me thod Room Air 06/19/23 21:45 06/20/23 02:05 06/20/23 08:54 Temperature 97.5 F L 98.0 F 97.9 F Pulse Rate [Right Radial] 70 69 79 Respiratory Rate 16 18 16 Blood Pressure [Le ft Arm] 103/71 95/65 97/67 Blood Pressure [Ri ght Arm] Pulse Oximetry 99 100 97 Oxygen Delivery Me thod Room Air Room Air Room Air Labs Labs: Laboratory Results - last 24 hr 06/19/23 06/20/23 06:03 05:38 WBC 9.82 RBC 3.19 L Hgb 9.1 L Hct 28.3 L MCV 89 MCH 29 MCHC 32 RDW Coeff of [place] 15.1 Plt Count 289 Neut % (Auto) 67.7 Lymph % (Auto) 20.6 [place] % (Auto) 10.5 Eos % (Auto) 0.9 Baso % (Auto) 0.1 Neut # (Auto) 6.65 Lymph # (Auto) 2.02 [place] # (Auto) 1.00 H Eos # (Auto) 0.09 Baso # (Auto) 0.01 Abs Immat Gran (auto) 0.02 Imm/Tot Granulo (auto) 0.2 Sodium 139 Potassium 3.7 Chloride 112 Carbon Dioxide 20 Anion Gap 7 BUN 7 Creatinine 0.7 Estimated Creat Clear 98.01 Estimated GFR 111 Glucose 96 Calcium 7.3 L C-Reactive Protein 16.5 H TSH 4.860 H Lab Acknowledgement Test Added
[2023-06-20] MEDS: CALCIUM CARBONATE 500 MG CHEW PO ×3 (09:51→21:12)
[2023-06-20] MEDS: polyethylene glycoL 3350 17 GM PACK PO (09:51)
[2023-06-20] MEDS: SERTRALINE 50 MG TABLET PO (11:34)
--- NOTE | 2023-06-20 12:35 | PC.NURSE ---
End of shift note: Patient is feeling some better today but very uncomfortable with all of the water weight on board. Patient is up about 17lbs from admission. MD was aware. Patient ambulating frequently in hallway. Edema present in lower extremities, upper extremities, abdomen and facial cavities. Patient feels full and no appetite. Xray done last evening. No evidence of ileus or SBO. Patient requested miralax as she has not had a solid BM in over a week. Also started on tums for low calcium. Encouraging high protein type foods. No fever this shift. BP is normal for patient. Denies shortness of breath and lung sounds are clear. TEDs and SCDs in place. Alert and oriented. Receiving IV antibiotics. SL as patient is taking in PO fluids. Voiding large amounts of clear yellow urine. Took shower this shift and patients mother here visiting.
--- NOTE | 2023-06-20 13:14 | PC.NURSE ---
IV infiltrated. Dr. Saeed notified. Okay to leave IV out. Transitioning to PO antibiotics. If clinical picture changes, can notified
[2023-06-20] MEDS: LACTOBACILLUS ACIDOPHILUS 1 TABLET 1 TAB PO ×3 (13:28→18:12)
[2023-06-20] MEDS: AMOXICILLIN/CLAVULANATE 875 mg/125 mg TABLET PO ×2 (13:28→18:13)
--- NOTE | 2023-06-20 22:15 | PC.NURSE ---
Slightly warm this evening- 99.0 F & c/o chills. Otherwise VSS. RA. Abdominal cramping- declined medications. Asks lots of questions, anxious. Abdomen distended, feels tight. Regular diet- large emesis x1 after dinner. Stated felt much better after. 2100 cc fluids in. ~1999 clear yellow urine out. Very large BM x1. No IV. Up independently. Walking halls frequently. Friend visited this evening. Will continue to monitor, follow POC, and keep pt and family updated. Hailey Shin RN
[2023-06-21 02:06] VITALS: BP 100/66; PULSE 75; RESP 16; TEMP 36.7; O2SAT 98
--- NOTE | 2023-06-21 06:35 | PC.NURSE ---
Shift note [id number]: Pt alert & oriented x 4 and able to make needs known. She reported 1/10 lower head/neck pain though declined PRN Tylenol when offered and accepted ice pack to help with discomfort. Pt denied abdominal pain when asked though states abdomen continues to have slight discomfort. No c/o nausea noted this shift. Bowel sounds noted to be active x 4 and LS clear to all lobes bilaterally. Pt remains continent of bladder and was noted to have 600 mL urinary output this shift. SCDs and NIKKY stockings worn to BLEs. VSS and pt afebrile this shift. ?
[2023-06-21 06:52] LABS: Basophils Absolute Auto 0.01 K/uL (0.00-0.30); Basophils Percent Auto 0.1 % (0.0-3.0); Eosinophils Absolute Auto 0.05 K/uL (0.00-0.50); Eosinophils Percent Auto 0.7 % (0.0-7.0); Hematocrit 27.1 % (33.0-51.0); Immature Granulocytes Abs Auto 0.02 K/uL (0.00-0.30); Immature Granulocytes Pct Auto 0.3 %; Lymphocytes Absolute Auto 1.99 K/uL (0.90-2.90); Lymphocytes Percent Auto 26.3 % (20-44); Mean Corpuscular HGB Conc 33 gm/dL (32-36); Mean Corpuscular Hemoglobin 28 pg (26-34); Mean Corpuscular Volume 86 fL (80-100); Neutrophils Absolute Auto 4.96 K/uL (1.7-7.0); Neutrophils Percent Auto 65.6 % (42.0-72.0); Platelet Count* 332 K/uL (140-440); RDW Coefficient of Variation % 14.7 % (11.5-15.5); Red Blood Count 3.17 m/uL (4.00-5.20); White Blood Count* 7.56 K/uL (4.50-11.00)
[2023-06-21 06:58] LABS: Slide Review Reflex No
[2023-06-21 07:00] VITALS: BP 103/68; PULSE 69; RESP 16; TEMP 36.7; O2SAT 99
[2023-06-21 07:09] LABS: Chloride* 107 mmol/L (96-114); Potassium* 3.2 mmol/L (3.6-5.1); Sodium* 133 mmol/L (135-149)
[2023-06-21 07:12] LABS: Creatinine* 0.7 mg/dL (0.5-1.5); Est. Creatinine Clearance* 98.01; Estimated Glomerular Filt Rate 111 ml/min
[2023-06-21 07:13] LABS: Anion Gap 5 mEq/L (7-15); Blood Urea Nitrogen* 6 mg/dL (5-24); Calcium* 7.5 mg/dL (8.4-10.6); Carbon Dioxide* 21 mmol/L (20-32); Glucose* 89 mg/dL (60-115)
[2023-06-21 07:16] LABS: C Reactive Protein* 6.9 mg/dL (0.5-1.0)
[2023-06-21] MEDS: LEVOTHYROXINE 75 MCG TABLET PO (09:20)
[2023-06-21] MEDS: CALCIUM CARBONATE 500 MG CHEW PO ×3 (09:20→20:54)
[2023-06-21] MEDS: AMOXICILLIN/CLAVULANATE 875 mg/125 mg TABLET PO (09:24)
[2023-06-21] MEDS: LACTOBACILLUS ACIDOPHILUS 1 TABLET 1 TAB PO ×3 (09:24→17:59)
[2023-06-21 11:00] VITALS: BP 110/70; PULSE 68; RESP 16; TEMP 36.8
[2023-06-21] MEDS: SERTRALINE 50 MG TABLET PO (11:21)
--- NOTE | 2023-06-21 13:21 | CRLHL7_ITS ---
For Patients: As a result of the Century Cures Act, medical imaging exams and procedure reports are released immediately into your electronic medical record. You may view this report before your referring provider. If you have questions, please contact your health care provider. INDICATION: Followup pyelonephritis COMPARISON: June 18, 2023 TECHNIQUE: CT examination of the abdomen and pelvis was performed following the uneventful intravenous administration of 76 cc of Isovue 370. Thin section axial images were obtained from the lung bases through the pubic symphysis. Oral contrast was not administered. Please note that all CT scans at this facility use dose modulation, iterative reconstruction, and/or weight-based dosing when appropriate to reduce radiation dose to as low as reasonably achievable. FINDINGS: LUNG BASES: Bibasilar atelectasis. Small left effusion and small to moderate right effusion. The lung and pleural findings are new. LIVER/BILIARY SYSTEM:The liver is normal in size and configuration. There is no focal mass and there is no intra- or extra hepatic biliary ductal dilatation.The gall bladder appears normal. ADRENALS: Normal KIDNEYS, URETERS and BLADDER:Bilateral perinephric stranding, right greater than left with inflammatory change in the right greater the left perinephric space extending down the right paracolic gutter. Mild free fluid in the right perinephric space and right pericolic gutter. The perinephric findings bilaterally have worsened. However, the patchy abnormal decreased contrast enhancement in both kidneys has significantly improved. No intrarenal or perinephric abscess identified. SPLEEN:Normal appearance. PANCREAS: Appears normal. RETROPERITONEUM and MESENTERY: There is no mass, adenopathy or aortic aneurysm. GASTROINTESTINAL SYSTEM: There is no evidence of diverticulitis, colitis, mechanical obstruction, or appendicitis. The small bowel as visualized appears normal. PELVIS: No free fluid or adenopathy. OSSEOUS STRUCTURES and ABDOMINAL WALL: Degenerative changes primarily at L5-S1. Mild body wall edema which is new. OTHER: No free fluid or free air. IMPRESSION: 1. Abnormal enhancement of the kidneys has significantly improved. This represents improving pyelonephritis. No intrarenal abscess identified. No evidence of obstructive uropathy. 2. Relatively mild bilateral perinephric inflammatory changes are noted, right greater than left but no perinephric collection or abscess. Mild fluid in the right perinephric space and right pericolic gutter likely reactive to the adjacent pyelonephritis. The perinephric findings are new. 3. Bibasilar atelectasis and bilateral effusions, new. Mild body wall edema which is new. Please note that all CT scans at this facility use dose modulation, iterative reconstruction, and/or weight-based dosing when appropriate to reduce radiation dose to as low as reasonably achievable. Dictated by Koffi Shah MD @ 06/21/2023 4:00:23 PM (Electronically Signed)
--- NOTE | 2023-06-21 13:22 | PM.IMPN1 ---
Progress Note: A&P Assessment and plan (1) Pyelonephritis: Problem details: - pansensitive E Coli on urine culture, Ceftriaxone initiated on admission, transitioned to oral abx on 06/20 - fever management prn - given persistent symptoms, will repeat CT A/P 06/21 Status: Acute (2) Abdominal distension: Problem details: - reassuring imaging on 06/19, vomited x1 06/20 - continue ambulation, evaluate further with imaging Status: Acute Plan - per above - Lovenox and SCDs for ppx - given persistent illness, recommend repeat scan today, possibly home tomorrow pending clinical course Subjective Date Seen: 06/21/23 Interval history: Patt feels worse today than yesterday, woke up twice overnight with subjective fever/sweats. Temperature has been objectively normal, but patient feels warm. Vomited once yesterday afternoon. Making urine. BM x1, abdominal distention has improved. Intermittent dizziness today, no syncope. Ambulating, but less today than yesterday 2/2 feeling poorly. Exam Narrative: Exam Narrative: GEN: Alert and oriented, appears ill. Feels warm during exam HEENT: EOMIs bilaterally, no scleral icterus CV: RRR, No concerning murmurs R: LCTA bilaterally without concerning wheezing or rales, air movement is adequate Ab: no ttp, less distention than previous Ext: Mild edema noted of bilateral hands, improved from yesterday Skin: No concerning skin lesions or rashes on exposed skin Neuro: Nonfocal Psych: Appropriate Const: Vital Signs, click to edit/add: Vital Signs - 24 hr 06/20/23 15:00 06/20/23 15:00 06/20/23 18:27 Temperature 98.4 F 98.3 F Pulse Rate [Right Radial] 72 72 75 Respiratory Rate 16 16 15 Blood Pressure [Le ft Arm] Blood Pressure [Ri ght Arm] 102/69 108/76 Pulse Oximetry 95 100 Oxygen Delivery Me thod Room Air Room Air 06/20/23 19:46 06/20/23 23:00 06/21/23 02:06 Temperature 98.5 F 98.6 F 98.0 F Pulse Rate [Right Radial] 82 75 75 Respiratory Rate 16 14 16 Blood Pressure [Le ft Arm] Blood Pressure [Ri ght Arm] 113/77 104/76 100/66 Pulse Oximetry 100 100 98 Oxygen Delivery Me thod Room Air Room Air Room Air 06/21/23 07:00 Temperature 98.0 F Pulse Rate [Right Radial] 69 Respiratory Rate 16 Blood Pressure [Le ft Arm] 103/68 Blood Pressure [Ri ght Arm] Pulse Oximetry 99 Oxygen Delivery Me thod Room Air Labs Labs: Laboratory Results - last 24 hr 06/21/23 06:23 WBC 7.56 RBC 3.17 L Hgb 9.0 L Hct 27.1 L MCV 86 MCH 28 MCHC 33 RDW Coeff of [place] 14.7 Plt Count 332 Neut % (Auto) 65.6 Lymph % (Auto) 26.3 [place] % (Auto) 7.0 Eos % (Auto) 0.7 Baso % (Auto) 0.1 Neut # (Auto) 4.96 Lymph # (Auto) 1.99 [place] # (Auto) 0.50 Eos # (Auto) 0.05 Baso # (Auto) 0.01 Abs Immat Gran (auto) 0.02 Imm/Tot Granulo (auto) 0.3 Sodium 133 L Potassium 3.2 L Chloride 107 Carbon Dioxide 21 Anion Gap 5 L BUN 6 Creatinine 0.7 Estimated Creat Clear 98.01 Estimated GFR 111 Glucose 89 Calcium 7.5 L Ionized Calcium [place] 1.10 L Magnesium 2.0 C-Reactive Protein 6.9 H
[2023-06-21] MEDS: cefTRIAXone 2 GM in 0.9 % SODIUM CHLORIDE Mini-bag 100 ML IVPB (14:55)
[2023-06-21 14:58] VITALS: BP 101/68; PULSE 65; RESP 16; TEMP 36.7; O2SAT 99
[2023-06-21] MEDS: POTASSIUM BICARB 25 MEQ EFFERVESCENT TAB PO ×3 (16:54→20:54)
[2023-06-21] MEDS: FUROSEMIDE 10 MG/ML inj 40 MG IVP (16:54)
--- NOTE | 2023-06-21 17:03 | W.PM.CROSSCO ---
Subjective Subjective Date Seen: 06/21/23 Interval history: Follow up repeat CT scan Objective Objective Data Details: Follow up repeat CT scan findings as below: FINDINGS: LUNG BASES: Bibasilar atelectasis. Small left effusion and small to moderate right effusion. The lung and pleural findings are new. LIVER/BILIARY SYSTEM:The liver is normal in size and configuration. There is no focal mass and there is no intra- or extra hepatic biliary ductal dilatation.The gall bladder appears normal. ADRENALS: Normal KIDNEYS, URETERS and BLADDER:Bilateral perinephric stranding, right greater than left with inflammatory change in the right greater the left perinephric space extending down the right paracolic gutter. Mild free fluid in the right perinephric space and right pericolic gutter. The perinephric findings bilaterally have worsened. However, the patchy abnormal decreased contrast enhancement in both kidneys has significantly improved. No intrarenal or perinephric abscess identified. SPLEEN:Normal appearance. PANCREAS: Appears normal. RETROPERITONEUM and MESENTERY: There is no mass, adenopathy or aortic aneurysm. GASTROINTESTINAL SYSTEM: There is no evidence of diverticulitis, colitis, mechanical obstruction, or appendicitis. The small bowel as visualized appears normal. PELVIS: No free fluid or adenopathy. OSSEOUS STRUCTURES and ABDOMINAL WALL: Degenerative changes primarily at L5-S1. Mild body wall edema which is new. OTHER: No free fluid or free air. IMPRESSION: 1. Abnormal enhancement of the kidneys has significantly improved. This represents improving pyelonephritis. No intrarenal abscess identified. No evidence of obstructive uropathy. 2. Relatively mild bilateral perinephric inflammatory changes are noted, right greater than left but no perinephric collection or abscess. Mild fluid in the right perinephric space and right pericolic gutter likely reactive to the adjacent pyelonephritis. The perinephric findings are new. 3. Bibasilar atelectasis and bilateral effusions, new. Mild body wall edema which is new. Discussed with Dr. [place], [facility]. No significant fluid collection and nothing obtainable for aspiration. Kidneys still showing sign of infection but improving. Fluid overload noted - in setting of recent sepsis fluid resuscitation. Assessment and Plan Assessment and plan (1) Pyelonephritis: Problem comment: - pansensitive E Coli on urine culture, Ceftriaxone initiated on admission, transitioned to oral abx on 06/20 - fever management prn - given persistent symptoms, will repeat CT A/P 06/21 Status: Acute Plan Discontinue oral cephalexin. Restart Ceftriaxone 2g IV q 24 hours. Lasix 40mg IV for fluid overload. Has had good urine output thus far. Replace potassium with 25 meq x 3 doses. Current potassium 3.2. Recheck BMP in am. May need to consider another dose of lasix, continue potassium supplement as necessary. Discussed findings and plan with patient and mother.
--- NOTE | 2023-06-21 18:53 | PC.NURSE ---
End of Shift: Patient was very fatigued this AM. Reported feeling the same as yesterday. The patient has a continued decreased appetite.. Tolerating an [place] ice/ensure for dinner with no N/V. Mild reports of pain in her neck/low back today.. patient denied Tylenol for pain and stated I am tolerating it ok. Repeat CT of abdomen and pelvis was completed. Plan to continue to treat with IV ABX instead of PO. Up ad moo. The patient showered this morning and a bed change was completed. No fevers this shift. Fluid intake is adequate throughout the shift. 1x dose of IV Lasix was given for edema. Reported mild abdominal tenderness in R upper quadrant. Voiding 400-500 every 15 min after the Lasix administration... charted in I and O. Patients mom visited today. An IV was placed in the L AC. Calls appropriately. TEDS were applied this evening. SCDS remain on when she is in bed. Patient reported feeling to weak today to get up and walk around much. CHAPARRO [place] BSN
[2023-06-21 19:00] VITALS: BP 99/45; PULSE 68; RESP 18; TEMP 36.4; O2SAT 99
[2023-06-21] MEDS: ENOXAPARIN 40 MG/0.4 ML INJ SUBCUT (20:53)
[2023-06-21 23:10] VITALS: BP 100/62; PULSE 63; RESP 16; TEMP 36.7; O2SAT 100
[2023-06-22 04:20] VITALS: BP 102/66; PULSE 63; RESP 16; TEMP 36.9; O2SAT 95
--- NOTE | 2023-06-22 05:12 | PC.NURSE ---
Patient pleasant, alert and oriented. Reported having episode of sweating during the night; no other complaints. Afebrile. Denied pain. Up to bathroom independently. Good urine output. VSS.
[2023-06-22 06:50] LABS: Basophils Absolute Auto 0.02 K/uL (0.00-0.30); Basophils Percent Auto 0.2 % (0.0-3.0); Eosinophils Percent Auto 1.2 % (0.0-7.0); Hemoglobin* 9.9 gm/dL (12.0-16.0); Immature Granulocytes Abs Auto 0.04 K/uL (0.00-0.30); Immature Granulocytes Pct Auto 0.5 %; Lymphocytes Absolute Auto 2.87 K/uL (0.90-2.90); Lymphocytes Percent Auto 35.1 % (20-44); Mean Corpuscular HGB Conc 33 gm/dL (32-36); Mean Corpuscular Hemoglobin 28 pg (26-34); Mean Corpuscular Volume 86 fL (80-100); Neutrophils Absolute Auto 4.49 K/uL (1.7-7.0); Platelet Count* 411 K/uL (140-440); RDW Coefficient of Variation % 14.5 % (11.5-15.5); White Blood Count* 8.17 K/uL (4.50-11.00)
[2023-06-22 06:57] LABS: Slide Review Reflex No
[2023-06-22 07:00] VITALS: BP 97/61; PULSE 67; RESP 16; TEMP 36.8; O2SAT 97
[2023-06-22 07:03] LABS: Chloride* 103 mmol/L (96-114); Sodium* 135 mmol/L (135-149)
[2023-06-22 07:04] LABS: Potassium* 4.3 mmol/L (3.6-5.1)
[2023-06-22 07:06] LABS: Creatinine* 0.9 mg/dL (0.5-1.5); Est. Creatinine Clearance* 76.23; Estimated Glomerular Filt Rate 82 ml/min
[2023-06-22 07:07] LABS: Anion Gap 4 mEq/L (7-15); Blood Urea Nitrogen* 8 mg/dL (5-24); Calcium* 8.3 mg/dL (8.4-10.6); Carbon Dioxide* 28 mmol/L (20-32); Glucose* 84 mg/dL (60-115)
[2023-06-22 07:10] LABS: C Reactive Protein* 4.2 mg/dL (0.5-1.0)
[2023-06-22] MEDS: LACTOBACILLUS ACIDOPHILUS 1 TABLET 1 TAB PO (09:24)
[2023-06-22] MEDS: LEVOTHYROXINE 75 MCG TABLET PO (09:24)
[2023-06-22] MEDS: CALCIUM CARBONATE 500 MG CHEW PO (09:24)
[2023-06-22 11:00] VITALS: BP 117/75; PULSE 65; RESP 16; TEMP 36.4; O2SAT 100
[2023-06-22] MEDS: SERTRALINE 50 MG TABLET PO (12:29)
--- NOTE | 2023-06-22 13:32 | P.DS_ITS ---
DS: Providers Provider Date Seen: 06/22/23 Date of admission: 06/18/23 17:21 Primary care physician: Antolin Bella MD Admitting Clinician: Jeannie Rayo MD Attending Physician on discharge: Seth Mi MD Date of Discharge: 06/22/23 DS: Diagnosis Discharge Diagnosis (1) Sepsis: Status: Acute Problem details: - Severe sepsis with WBC>12, HR >90, T>100.9, lactate>2. Source is pyelonephritis. Admit for IV antibiotics. She has gotten 2L IVF in the ER and since she is still mildly hypotensive, I will give her a 3rd L. - CT shows bilateral multifocal pyelonephritis. No renal abscess or perinephric collection. No urinary tract obstruction - 06/19: leukocytosis down trending, lactate 1.2. CRP unchanged. Remains intermittently febrile. - continue IV ceftriaxone 2 g Q 24 hours, NS IV maintenance fluids, bolus as needed - continue to monitor blood pressure, normal systolic for her is mid 90s-100 - BC x2, UC pending (2) Pyelonephritis: Status: Acute Problem details: - pansensitive E Coli on urine culture, Ceftriaxone initiated on admission, transitioned to oral abx on 06/20 - fever management prn - given persistent symptoms, will repeat CT A/P 06/21 (3) Abdominal distension: Status: Acute Problem details: - reassuring imaging on 06/19, vomited x1 06/20. Repeat CT on 06/21 showed no new intra-abdominal process and improvement in pyelonephritis - continue ambulation, evaluate further with imaging (4) Fluid overload: Status: Acute Problem details: Due to sepsis/hypotension patient received multiple bags of IV fluid. Due to ongoing nausea she also received maintenance fluids. This cause dilutional anemia, small pleural effusions, significant weight gain of 20 lb. Yesterday received diuresis. Today weight is down 10 lb from maximum weight but still up 10 lb from admission. DS: Summary Hospital Course Hospital Course: 42-year-old female admitted to the hospital with fever chills fatigue malaise. She had some abdominal pain. On admission she was diagnosed with pyelonephritis based on abnormal urinalysis and CT findings consistent with bilateral pyelonephritis. She met criteria for sepsis. She was started on ceftriaxone and given aggressive fluid resuscitation. Over the subsequent several days in a hospital she clinically improved though continued to have some abdominal pain and nausea. She had marked weight gain of 20 lb attributable to IV fluid resuscitation. Yesterday she had some diuresis and is now down 10 lb from yesterday. Cultures grew out pansensitive E coli and she has been treated with ceftriaxone and outpatient will be treated with cephalexin. Status at Discharge Functional status at discharge: independent ambulation Overall status at discharge: patient is progressing back to baseline Time Spent with Patient Time attestation: Total time spent providing and/or coordinating discharge services: 40 minutes Time spent: Greater than 30 minutes Exam Narrative: Exam Narrative: She is alert and appears in no distress. Respirations are clear to auscultation without crackles or dullness. Cardiovascular: S1, S2, regular rate and rhythm. No murmur gallop or rub. Abdomen: Bowel sounds active. Abdomen is soft. She has minimal left upper quadrant tenderness. No mass. No CVA tenderness to percussion. Trace edema in her extremities. Const: Vital Signs, click to edit/add: Vital Signs - 24 hr 06/21/23 14:58 06/21/23 19:00 06/21/23 23:10 Temperature 98.0 F 97.6 F 98.1 F Pulse Rate [Pulse Oximeter] 63 Pulse Rate [Right Radial] 65 68 Respiratory Rate 16 18 16 Blood Pressure [Le ft Arm] 99/45 L Blood Pressure [Ri ght Arm] 101/68 100/62 Pulse Oximetry 99 99 100 Oxygen Delivery Me thod Room Air Room Air Room Air 06/22/23 04:20 Temperature 98.5 F Pulse Rate [Pulse Oximeter] 63 Pulse Rate [Right Radial] Respiratory Rate 16 Blood Pressure [Le ft Arm] 102/66 Blood Pressure [Ri ght Arm] Pulse Oximetry 95 Oxygen Delivery Me thod Room Air Documenting provider has reviewed patient's vital signs: yes DS: Data Data Completed and Pending Labs on day of discharge: Labs from last 24 hours 06/22/23 06:19 WBC 8.17 RBC 3.50 L Hgb 9.9 L Hct 30.0 L MCV 86 MCH 28 MCHC 33 RDW Coeff of [place] 14.5 Plt Count 411 Neut % (Auto) 55.0 Lymph % (Auto) 35.1 [place] % (Auto) 8.0 Eos % (Auto) 1.2 Baso % (Auto) 0.2 Neut # (Auto) 4.49 Lymph # (Auto) 2.87 [place] # (Auto) 0.70 Eos # (Auto) 0.10 Baso # (Auto) 0.02 Abs Immat Gran (auto) 0.04 Imm/Tot Granulo (auto) 0.5 Sodium 135 Potassium 4.3 Chloride 103 Carbon Dioxide 28 Anion Gap 4 L BUN 8 Creatinine 0.9 Estimated Creat Clear 76.23 Estimated GFR 82 Glucose 84 Calcium 8.3 L C-Reactive Protein 4.2 H Preliminary micro results at discharge 06/18/23 14:35 Blood Culture - Preliminary Blood NO GROWTH AFTER 72 HOURS 06/18/23 14:43 Blood Culture - Preliminary Blood NO GROWTH AFTER 72 HOURS Discharge Plan Discharge Disposition: Home, Self-Care Date of Admission: 06/18/23 17:21 Attending Provider on Discharge: Gerson Mi Primary Care Provider: Antolin Bella Condition: Unchanged Anticipated Discharge Date/Time: 06/22/23 14:30 Discharge Medications: New cephalexin 250 mg capsule 500 mg PO QID Qty: 40 0RF Continued levothyroxine 75 mcg tablet 75 mcg PO DAILY Qty: 90 3RF liothyronine 5 mcg tablet 2.5 mcg PO DAILY Qty: 45 3RF valacyclovir 1 gram tablet 2,000 mg PO BID PRN (Reason: cold sores) Qty: 8 4RF Rx Instructions: Take at onset on cold sore flare, 2 tabs po now and again 12 hrs later. sumatriptan succinate 25 mg tablet 25 - 50 mg PO ONCE Qty: 9 3RF Rx Instructions: may repeat once after at least 2 hours desogestrel-ethinyl estradiol [Apri] 0.15-0.03 mg tablet 1 tab PO QDAY Qty: 112 3RF Rx Instructions: To take continuously, allowing for a period every 3 months sertraline 50 mg tablet 50 mg PO DAILY Qty: 90 2RF Discharge Orders: Discharge Order (Routine); Ordered 06/22/23 Ordered By: Gerson Mi Patient Education: Cephalexin (By mouth), Kidney Infection (DC) Activity Level: Activity as Tolerated Discharge Diet: Regular Follow Up Appointments: Antolin Bella MD [Primary Care Provider] - 07/02/23 1:15 pm (Follow-up in one week) Forms: [employer] Info Instructions
[2023-06-22] MEDS: cefTRIAXone 2 GM in 0.9 % SODIUM CHLORIDE Mini-bag 100 ML IVPB (14:05)
--- NOTE | 2023-06-22 16:14 | PC.NURSE ---
Discharge - Pt alert, oriented, cooperative during shift. Pt denies pain, dizziness, nausea. Tolerating RA, regular diet. Pt independent in room and ambulating in halls. Pt reported fatigue at start of shift, allowed to sleep. Pt reported improved energy and feeling the best she had felt in days later in shift. Discharge education provided, paperwork signed. Pt discharge to home with family member at approximately 15:19.
== END 2023-06-22 15:19 | disposition home or self-care (01) | DRG 872 ==
LOC: ED 15:22 → MEDSURG 16:15
PROVIDERS: Family Medicine; Physician Assistant; Admitting Provider Family Medicine; Emergency Provider Emergency Medicine Emergency Medical Services; PCP Family Medicine; Visit Provider Family Medicine
DX: A41.9 Sepsis, unspecified organism (principal); N10 Acute pyelonephritis; B96.20 Unspecified Escherichia coli [E. coli] as the cause of diseases classified elsewhere; R65.20 Severe sepsis without septic shock; D64.89 Other specified anemias; R14.0 Abdominal distension (gaseous); E03.9 Hypothyroidism, unspecified; E06.3 Autoimmune thyroiditis; F41.9 Anxiety disorder, unspecified
CPT/HCPCS: 36415; 74019; 74177; 76705; 80048; 80076; 81001; 82330; 83605; 83735; 84443; 85025; 86140; 87040; 87086; 87186; 87631; 95992; 99284; 99285; A9270; J0696; J1650; J1885; J1940; J2405; J7030; J7120; Q9967

== ENCOUNTER 2023-08-17 11:20 | Outpatient (CLI) | payer OTHER, SELFPAY ==
--- OUTSIDE RECORDS SUMMARY | 2023-08-17 11:36 | XMS_ITS | Clinical Summary ---
Author Name Unknown Organization [facility] Address [place], [place] [address] Care Team Providers Care Dining Service Supervisor Name Role Phone Enriqueta Walters MD Primary Care Provider [phone] None Unavailable Unavailable Allergies No known active allergies Medications Medication Sig Dispensed Refills Start Date End Date Status levothyroxine (SYNTHROID) 50 mcg tablet Take 50 mcg by mouth once daily. 3 02/14/2018 Active Active Problems Problem Noted Date Diagnosed Date Abnormal findings on screening 012 Immunizations Name Administration Dates Next Due Influenza, IIV4 07/26/2017 Tdap 06/15/2014,07/10/2011 Family History Medical History Relation Name Comments Allergies Father Cancer Maternal Grandfather Cancer Maternal Grandmother Cancer-breast Maternal Grandmother Thyroid Disease Maternal Grandmother Heart Disease Mother Leukemia Paternal Grandfather Anesthesia Problem Paternal Grandmother Osteoporosis Paternal Grandmother Stroke Paternal Grandmother Melanoma Paternal Uncle Relation Name Status Comments Father Maternal Grandfather Maternal Grandmother Mother Paternal Grandfather Paternal Grandmother Paternal Uncle Social History Tobacco Use Types Packs/Day Years Used Date Smoking Tobacco: Never Smokeless Tobacco: Never Tobacco Cessation:Counseling Given: Yes Alcohol Use Standard Drinks/Week Comments Yes 0 (1 standard drink = 0.6 oz pur e alcohol) occasionally Sex and Gender Information Value Date Recorded Sex Assigned at Not on file Gender Identity Not on file Sexual Orientation Not on file Obstetrics History Last Filed Vital Signs Vital Sign Reading Time Taken Comments Blood Pressure 96/61 02/18/2018 1:36 PM CDT Pulse 61 02/18/2018 1:36 PM CDT Temperature - - Respiratory Rate - - Oxygen Saturation 100% 02/18/2018 1:36 PM CDT Inhaled Oxygen Concentration - - Weight 60.7 kg (133 lb 12.8 oz) 02/18/2018 1:36 PM CDT Height 166.5 cm (5' 5.55) 02/18/2018 1:36 PM CD T Body Mass Index 21.89 02/18/2018 1:36 PM CDT Plan of Treatment Health Maintenance Due Date Last Done Comments COVID-19 vaccine series (#1) 03/04/1981 HIV for age 15-65 1995 Hepatitis C screening for age 18-79 1998 BMI (ht and wt on same day) for age 18+ 02/18/2019 02/18/2018 Depression screening for age 12+ 02/18/2019 02/18/2018 Influenza for age 9-49 03/23/2023 07/26/2017 Tetanus booster 06/15/2024 06/15/2014, 07/10/2011 Pap test for age 21-65 01/04/2025 2, 01/04/2022, 10/06/2019, Additional history exists Tdap Completed 06/15/2014, 07/10/2011 Pneumococcal series for age 6-64 Aged Out No longer eligible based on patient's age to complete this topic Care Teams Dining Service Supervisor Relationship Specialty Start Date End Date Enriqueta Walters MD PCP - General Family Practice 02/08/18 None . 02/08/18
== END 2023-08-17 11:21 | disposition home or self-care (01) ==
PROVIDERS: PCP Family Medicine; Visit Provider Physician Assistant
DX: Z11.3 Encounter for screening for infections with a predominantly sexual mode of transmission (principal)
CPT/HCPCS: 86592; 86703; 86706; 86803; 87340; 87491; 87591

== ENCOUNTER 2023-12-12 09:46 | Outpatient (CLI) | payer OTHER, SELFPAY ==
--- OUTSIDE RECORDS SUMMARY | 2024-01-01 11:47 | XMS_ITS | Clinical Summary ---
Author Organization [facility] Address [place], [place] [address] Care Team Providers Care Dress Finisher Name Role Phone Enriqueta Walters MD Primary Care Provider [phone] None Unavailable Unavailable Allergies No known active [...] Health Maintenance Due Date Last Done Comments HIV for age 15-65 1995 Hepatitis C screening for age 18-79 1998 BMI (ht and wt on same day) for age 18+ 02/18/2019 02/18/2018 Depression screening for age 12+ 02/18/2019 02/18/2018 COVID-19 vaccine series (2022- season) 2023 Influenza for age 9-49 03/23/2024 07/26/2017 Tetanus booster 06/15/2024 06/15/2014, 07/10/2011 Pap test for age 21-65 01/04/2025 2, 01/04/2022, 10/06/2019, Additional history exists Tdap Completed 06/15/2014, 07/10/2011 Pneumococcal series for age 6-64 Aged Out No longer eligible based on patient's age to complete this topic Procedures Procedure Name Priority Date/Time Associated Diagnosis Comments HPV THIN PREP Routine 01/04/2022 10:45 AM CDT from Last 3 Months or Most Recently Relevant to Health Maintenance Results * HPV HIGH RISK (01/04/2022 10:45 AM CDT) TYPE 16 Negative Negative 01/06/2022 11:14 AM CDT [facility] TYPE 18 Negative Negative 01/06/2022 11:14 AM CDT [facility] OTHER HIGH RISK TYPES Negative Negative 01/06/2022 11:14 AM CDT [facility] Other (Cervical/Vagina l) 01/04/2022 10:45 AM CDT 01/05/2022 9:09 AM CDT Narrative [facility] - 01/06/2022 11:14 AM CDT HPV types 16, 18, 31, 33, 35, 39, 45, 51, 52, 56, 58, 59, 66 and 68 DNA were undetectable or below the pre-set threshold. Methodology: Abdullahi Evelyn 4800 HPV Test Shena Amanda MD MICROBIOLOGY [facility] [address] [place] [address], from Last 3 Months or Most Recently Relevant to Health Maintenance Care Teams Dress Finisher Relationship Specialty Start Date End Date Enriqueta Walters MD PCP - General Family Practice 02/08/18 None . 02/08/18
== END 2023-12-12 09:47 | disposition home or self-care (01) ==
LOC: NFLDREF 01-01 11:45
PROVIDERS: PCP Family Medicine; Referring Provider Family Medicine; Visit Provider Family Medicine
DX: E78.5 Hyperlipidemia, unspecified (principal); E03.9 Hypothyroidism, unspecified; D64.9 Anemia, unspecified; N12 Tubulo-interstitial nephritis, not specified as acute or chronic
CPT/HCPCS: 80053; 80061; 84443

== ENCOUNTER 2024-02-21 15:39 | Outpatient (CLI) | payer OTHER, SELFPAY ==
--- OUTSIDE RECORDS SUMMARY | 2024-02-24 04:33 | XMS_ITS | Clinical Summary ---
Author Organization [facility] Address [place], [place] [address] Care Team Providers Care Chemistry Instructor Name Role Phone Enriqueta Walters MD Primary Care Provider None Unavailable Unavailable Allergies No known active [...] 16 Negative Negative 01/06/2022 11:14 AM CDT [facility] TYPE 18 Negative Negative 01/06/2022 11:14 AM CDT [facility] OTHER HIGH RISK TYPES Negative Negative 01/06/2022 11:14 AM CDT [facility] Other (Cervical/Vagina l) 01/04/2022 10:45 AM CDT 01/05/2022 9:09 AM CDT Narrative [facility] - 01/06/2022 11:14 AM CDT HPV types 16, 18, 31, 33, 35, 39, 45, 51, 52, 56, 58, 59, 66 and 68 DNA were undetectable or below the pre-set threshold. Methodology: Abdullahi Evelyn 4800 HPV Test Shena Amanda MD MICROBIOLOGY [facility] [address] [place] [address], from Last 3 Months or Most Recently Relevant to Health Maintenance Care Teams Chemistry Instructor Relationship Specialty Start Date End Date Enriqueta Walters MD PCP - General Family Practice 02/08/18 None . 02/08/18
== END 2024-02-21 15:40 | disposition home or self-care (01) ==
LOC: NFLDREF 02-24 04:32
PROVIDERS: PCP Family Medicine; Referring Provider Family Medicine; Visit Provider Registered Nurse
DX: N89.8 Other specified noninflammatory disorders of vagina (principal); N76.0 Acute vaginitis; B96.89 Other specified bacterial agents as the cause of diseases classified elsewhere
CPT/HCPCS: 87086

== ENCOUNTER 2024-02-26 10:08 | Outpatient (CLI) | payer OTHER, SELFPAY ==
--- OUTSIDE RECORDS SUMMARY | 2024-02-26 10:10 | XMS_ITS | Clinical Summary ---
Author Organization [facility] Address [place], [place] [address] Care Team Providers Care Delivery Truck Driver Heavy Name Role Phone Enriqueta Walters MD Primary Care Provider [phone] None Unavailable Unavailable Allergies No known active [...] Negative Negative 01/06/2022 11:14 AM CDT [facility] TYPE 18 Negative Negative 01/06/2022 11:14 AM CDT [facility] OTHER HIGH RISK TYPES Negative Negative 01/06/2022 11:[address] [facility] Other (Cervical/Vagina l) 01/04/2022 10:45 AM CDT 01/05/2022 9:09 AM CDT Narrative [facility] - 01/06/2022 11:14 AM CDT HPV types 16, 18, 31, 33, 35, 39, 45, 51, 52, 56, 58, 59, 66 and 68 DNA were undetectable or below the pre-set threshold. Methodology: Abdullahi Evelyn 4800 HPV Test Shena Amanda MD MICROBIOLOGY [facility] [address] [place] [address], from Last 3 Months or Most Recently Relevant to Health Maintenance Care Teams Delivery Truck Driver Heavy Relationship Specialty Start Date End Date Enriqueta Walters MD PCP - General Family Practice 02/08/18 None . 02/08/18
--- NOTE | 2024-02-26 10:15 | CRLHL7_ITS ---
For Patients: As a result of the Century Cures Act, medical imaging exams and procedure reports are released immediately into your electronic medical record. You may view this report before your referring provider. If you have questions, please contact your health care provider. BILATERAL SCREENING MAMMOGRAM WITH COMPUTER-AIDED DETECTION AND TOMOSYNTHESIS TECHNIQUE: CC and MLO views were obtained. These mammographic images have been obtained using full-field digital technique. These mammographic images were interpreted with the benefit of computer-aided detection. Breast tomosynthesis was used in this interpretation. COMPARISON FILM: 01/05/23, 01/04/22, 10/25/20. FINDINGS: There are scattered areas of fibroglandular density. IMPRESSION: There is no radiographic evidence for malignancy. ASSESSMENT: BI-RADS Category 1: Negative RECOMMENDATION: Routine screening mammogram in 1 year. A lay language report of this examination will be provided to the patient. CHAPITO MONDRAGON M.D. Diagnostic Radiologist [email or web address] Transcribed: 3:[address]/Dictated by: Chapito Mondragon MD @ 02/26/2024 11:01:00 AM (Electronically Signed)
== END 2024-02-26 10:09 | disposition home or self-care (01) ==
LOC: MAMMO 10:08
PROVIDERS: PCP Family Medicine; Visit Provider Family Medicine
DX: Z12.31 Encounter for screening mammogram for malignant neoplasm of breast (principal)
CPT/HCPCS: 77063; 77067

== ENCOUNTER 2024-05-15 08:32 | Outpatient (CLI) | payer OTHER, SELFPAY ==
--- OUTSIDE RECORDS SUMMARY | 2024-05-16 11:57 | XMS_ITS | Clinical Summary ---
Author Organization [facility] Address [place], [place] [address] Care Team Providers Care Greenhouse Instructor Name Role Phone Enriqueta Walters MD [...] age 12+ 02/18/2019 02/18/2018 COVID-19 vaccine series ( season) 2024 Influenza for age 9-49 03/23/2024 07/26/2017 Tetanus booster 06/15/2024 06/15/2014, 07/10/2011 Pap test for age 21-65 01/04/2025 2, 01/04/2022, 10/06/2019, Additional history exists Tdap Completed 06/15/2014, 07/10/2011 Pneumococcal series for age 6-64 Aged Out No longer eligible based on patient's age to complete this topic Procedures Procedure Name Priority Date/Time Associated Diagnosis Comments HPV HIGH RISK Routine 01/04/2022 10:45 AM CDT from Last 3 Months or Most Recently Relevant to Health Maintenance Results * HPV HIGH RISK (01/04/2022 10:45 AM CDT) TYPE 16 Negative Negative 01/06/2022 11:14 AM CDT [facility] TYPE 18 Negative Negative 01/06/2022 11:14 AM CDT [facility] OTHER HIGH RISK TYPES Negative Negative 01/06/2022 11:14 AM CDT [facility] Other (Cervical/Vagina l) 01/04/2022 10:45 AM CDT 01/05/2022 9:09 AM CDT Narrative [facility] - 01/06/2022 11:14 AM CDT HPV types 16, 18, 31, 33, 35, 39, 45, 51, 52, 56, 58, 59, 66 and 68 DNA were undetectable or below the pre-set threshold. Methodology: Abdullahi Evelyn 4800 HPV Test Shena Amanda MD MICROBIOLOGY [facility] [address] [place] [address], from Last 3 Months or Most Recently Relevant to Health Maintenance Care Teams Greenhouse Instructor Relationship Specialty Start Date End Date Enriqueta Walters MD PCP - General Family Practice 02/08/18 None . 02/08/18
== END 2024-05-15 08:33 | disposition home or self-care (01) ==
LOC: NFLDREF 05-16 11:55
PROVIDERS: PCP Family Medicine; Referring Provider Family Medicine; Visit Provider Family Medicine
DX: R53.83 Other fatigue (principal)
CPT/HCPCS: 84443

== ENCOUNTER 2025-01-27 13:52 | Outpatient (CLI) | payer OTHER, SELFPAY ==
[2025-01-27 22:31] LABS: Chlamydia DNA Amplified* NOT DETECTED (No Detected); GC DNA Amplified* NOT DETECTED (No Detected)
[2025-01-29 04:32] LABS: HPV Source Cervix
[2025-01-29 18:01] LABS: HPV Genotype 16 by TMA Detected; HPV Genotype 18/45 by TMA Not Detected
== END 2025-01-27 13:53 | disposition home or self-care (01) ==
PROVIDERS: PCP Family Medicine; Visit Provider Physician Assistant
DX: Z11.3 Encounter for screening for infections with a predominantly sexual mode of transmission (principal); Z12.4 Encounter for screening for malignant neoplasm of cervix; Z11.51 Encounter for screening for human papillomavirus (HPV)
CPT/HCPCS: 87491; 87591; 87624; 87625; 88141; 88142

== ENCOUNTER 2025-02-03 08:40 | Outpatient (CLI) | payer OTHER, SELFPAY | END 2025-02-03 08:41 | disposition home or self-care (01) | LOC: NFLDREF 02-05 13:20 | PROVIDERS: PCP Family Medicine; Referring Provider Family Medicine; Visit Provider Physician Assistant | DX: F41.9 Anxiety disorder, unspecified (principal); Z13.6 Encounter for screening for cardiovascular disorders; Z13.228 Encounter for screening for other metabolic disorders | CPT/HCPCS: 80053; 80061; 84443 ==

== ENCOUNTER 2025-03-30 14:12 | Outpatient (CLI) | payer OTHER, SELFPAY ==
[2025-03-30 17:23] LABS: Bacterial Vaginosis* POSITIVE (Negative); Candida glab/krus NOT DETECTED (No Detected)
[2025-03-30 17:53] LABS: Chlamydia DNA Amplified* NOT DETECTED (No Detected); GC DNA Amplified* NOT DETECTED (No Detected)
== END 2025-03-30 14:13 | disposition home or self-care (01) ==
PROVIDERS: PCP Family Medicine; Visit Provider Obstetrics & Gynecology
DX: N89.8 Other specified noninflammatory disorders of vagina (principal); Z11.3 Encounter for screening for infections with a predominantly sexual mode of transmission
CPT/HCPCS: 81513; 87481; 87491; 87591; 87661

== ENCOUNTER 2025-05-20 16:01 | Outpatient (CLI) | payer OTHER, SELFPAY ==
[2025-05-20 21:03] LABS: Bacterial Vaginosis* Negative (Negative); Candida glab/krus NOT DETECTED (No Detected)
== END 2025-05-20 16:02 | disposition home or self-care (01) ==
PROVIDERS: PCP Family Medicine; Visit Provider Registered Nurse
DX: N89.8 Other specified noninflammatory disorders of vagina (principal); R32 Unspecified urinary incontinence
CPT/HCPCS: 81513; 87086; 87481; 87661

== ENCOUNTER 2025-06-16 18:01 | Outpatient (CLI) | payer OTHER, SELFPAY ==
--- NOTE | 2025-06-16 18:20 | CRLHL7_ITS ---
For Patients: As a result of the Cures Act, medical imaging exams and procedure reports are released immediately into your electronic medical record. You may view this report before your referring provider. If you have questions, please contact your health care provider. BILATERAL DIGITAL SCREENING MAMMOGRAM WITH COMPUTER-AIDED DETECTION AND TOMOSYNTHESIS CLINICAL HISTORY: Routine screening exam. COMPARISON: Mammogram 02/26/2024, 01/05/2023 and 01/04/2022. TECHNIQUE: Digital mammogram in CC and MLO projections including computer-aided detection (CAD) and tomosynthesis. BREAST COMPOSITION: There are scattered areas of fibroglandular density. FINDINGS: RIGHT Breast: There is a focal asymmetry at approximately 12-1 o`clock, middle depth. LEFT Breast: No suspicious findings. IMPRESSION: RIGHT breast focal asymmetry. RECOMMENDATIONS: Additional mammographic views of the RIGHT breast including 90-degree lateral, spot compression CC and MLO. RIGHT breast ultrasound may also be required. A member of the breast care team will contact the patient to arrange for this additional study. BI-RADS Category 0: Incomplete: Need Additional Imaging Evaluation Dictated by Erika Crow MD @ 06/17/2025 8:58:44 PM/[facility]/Dictated by: Erika Crow MD @ 06/17/2025 8:58:00 PM (Electronically Signed)
== END 2025-06-16 18:02 | disposition home or self-care (01) ==
LOC: MAMMO 18:01
PROVIDERS: PCP Family Medicine; Visit Provider Physician Assistant
DX: Z12.31 Encounter for screening mammogram for malignant neoplasm of breast (principal); N63.10 Unspecified lump in the right breast, unspecified quadrant
CPT/HCPCS: 77063; 77067

== ENCOUNTER 2025-06-25 08:45 | Outpatient (CLI) | payer OTHER, SELFPAY ==
--- NOTE | 2025-06-25 08:45 | CRLHL7_ITS ---
For Patients: As a result of the Cures Act, medical imaging exams and procedure reports are released immediately into your electronic medical record. You may view this report before your referring provider. If you have questions, please contact your health care provider. DIGITAL DIAGNOSTIC RIGHT MAMMOGRAM USING TOMOSYNTHESIS RIGHT BREAST ULTRASOUND CLINICAL HISTORY: RIGHT breast mass/asymmetry. COMPARISON: 06/16/2025, 02/26/2024, 01/05/2023. TECHNIQUE: Digital RIGHT mammogram in three projections. Tomosynthesis was used in this interpretation. Real-time ultrasound imaging of RIGHT breast with imaging documentation. BREAST COMPOSITION: The breast is heterogeneously dense, which may obscure small masses. FINDINGS: Additional mammogram images RIGHT breast submitted. Decreased conspicuity of previously noted asymmetric density. No architectural distortion or suspicious calcifications. Targeted RIGHT breast ultrasound performed at 3 o`clock 3 cm from the nipple. Normal fibroglandular tissue is present. No fibrocystic change or mass. No evidence of malignancy. IMPRESSION: No suspicious findings. RECOMMENDATIONS: Routine screening mammography. A lay language report of this examination will be provided to the patient. BI-RADS Category 2: Benign Dictated by Chapito Mcghee MD @ 06/25/2025 10:29:18 AM jj/Dictated by: Chapito Mcghee MD @ 06/25/2025 10:29:00 AM (Electronically Signed)
--- NOTE | 2025-06-25 09:15 | CRLHL7_ITS ---
For Patients: As a result of the Cures Act, medical imaging exams and procedure reports are released immediately into your electronic medical record. You may view this report before your referring provider. If you have questions, please contact your health care provider. SEE DIGITAL DIAGNOSTIC RIGHT MAMMOGRAM PERFORMED SAME DAY [email or web address]:[email or web address] paredes/Dictated by: Chapito Mcghee MD @ 06/25/2025 10:27:00 AM (Electronically Signed)
== END 2025-06-25 08:46 | disposition home or self-care (01) ==
LOC: MAMMO 08:46
PROVIDERS: PCP Family Medicine; Visit Provider Family Medicine
DX: N63.10 Unspecified lump in the right breast, unspecified quadrant (principal); R92.8 Other abnormal and inconclusive findings on diagnostic imaging of breast
CPT/HCPCS: 76642; 77065; G0279

== ENCOUNTER 2025-07-09 11:09 | Outpatient (CLI) | payer OTHER, SELFPAY ==
--- NOTE | 2025-07-09 11:15 | CRLHL7_ITS ---
For Patients: As a result of the Century Cures Act, medical imaging exams and procedure reports are released immediately into your electronic medical record. You may view this report before your referring provider. If you have questions, please contact your health care provider. CLINICAL HISTORY: Bilateral flank pain COMPARISON: none TECHNIQUE: Valle scale and color Doppler images were acquired of the kidneys and urinary bladder. FINDINGS: Sonographic images reveal a symmetric appearance of the kidneys. There is no evidence of hydronephrosis, mass or calculus. The right kidney measures 10.2cm in length and the left kidney measures 9.6cm in length. The renal cortex appears of normal thickness. The urinary bladder appears normal. Color Doppler images reveal a normal appearance of both ureteral jets. There is no evidence of bladder calculi or diverticula. Prevoid bladder volume 66 cc. Postvoid bladder volume 9 cc. IMPRESSION: Normal renal ultrasound. Dictated by Chapito Mcghee MD @ 07/09/2025 3:10:30 PM (Electronically Signed)
== END 2025-07-09 11:10 | disposition home or self-care (01) ==
LOC: US 11:10
PROVIDERS: PCP Family Medicine; Visit Provider Student in an Organized Health Care Education/Training Program
DX: R10.A3 Flank pain, bilateral (principal); Z03.89 Encounter for observation for other suspected diseases and conditions ruled out
CPT/HCPCS: 76770